=== PATIENT | female | born 1960 | race Caucasian/White ===

== ENCOUNTER 2016-10-02 19:24 | Inpatient (IN) | payer OTHER ==
[2016-10-02 20:30] LABS: Hematocrit 44 % (35-47); Hemoglobin 14.4 g/dl (12.0-16.0); Mean Corpuscular HGB Conc 33 g/dl (31-36); Mean Corpuscular Hemoglobin 30 pg (27-31); Mean Corpuscular Volume 89 fL (80-97); Mean Platelet Volume 9 um3 (7.4-10.4); Red Blood Count 4.89 10^6/ul (4.0-5.4); Red Cell Distribution Width 13 % (10.5-15)
[2016-10-02 20:48] LABS: ALT 11 U/L (7-52); AST 17 U/L (13-39); Albumin 4.9 g/dL (3.2-5.2); Alkaline Phosphatase 49 U/L (34-104); Anion Gap 9 mmol/L (2-11); BUN/Creatinine Ratio 16.5 (8-20); Blood Urea Nitrogen 14 mg/dL (6-24); CO2 Carbon Dioxide 22 mmol/L (22-32); Calcium 10.1 mg/dL (8.6-10.3); Chloride 105 mmol/L (101-111); EGFR Non-African American 69.2 (>60); Globulin 2.8 g/dL (2-4); Glucose 108 mg/dL (70-100); Potassium 3.7 mmol/L (3.5-5.0); Sodium 136 mmol/L (133-145); Total Protein 7.7 g/dL (6.4-8.9)
[2016-10-02 21:16] LABS: Acetaminophen < 15 mcg/mL; Alcohol < 10 mg/dL (<10); Lithium < 0.10 mmol/L (0.6-1.2); Salicylate < 2.50 mg/dL (<30)
[2016-10-02 21:26] LABS: TSH (Thyroid Stimulating Horm) 2.46 mcIU/mL (0.34-5.60)
[2016-10-02] MEDS ORDERED: LORazepam INJ* 2 MG/ML 1 ML VIAL IM ONE (22:44)
[2016-10-02] MEDS ORDERED: Haloperidol INJ IV/IM* 5 MG/ML AMP IM ONE (22:44)
[2016-10-02] MEDS ORDERED: diPHENhydraMINE IV* 50 MG/ML 1 ml VIAL (BENADRYL) IM ONE (22:44)
--- NOTE | 2016-10-02 22:46 | ED ---
Ann Yeh Edward, scribed for Jeet Roche MD on 10/02/16 at 2004 . Psychiatric Complaint - HPI Summary HPI Summary: 56 y/o female presents to ED c/o depression and trouble sleeping. Patient states she could not sleep last night. Patient was convinced by her family to come in to the ED. Denies change in appetite. Patient started taking [place] a couple of weeks ago. - History Of Current Complaint Chief Complaint: EDMentalHealth Time Seen by Provider: 10/02/16 19:48 Hx Obtained From: Patient, Family/Media Center Director School - Son and present. Hx Last Menstrual Period: 06/16/12 Onset/Duration: Lasting Days - Started yesterday, Still Present Timing: Constant Character: Depressed Associated Signs And Symptoms: Positive: Sleep Disturbance - Allergies/Home Medications Allergies/Adverse Reactions: Allergies Allergy/AdvReac Type Severity Reaction Status Date / Time Penicillins Allergy Unknown Unknown Verified 04/04/16 14:10 Reaction Details PMH/Surg Hx/FS Hx/Imm Hx Previously Healthy: No Neurological History: Reports: Hx Headaches - Chronic Headaches Psychiatric History: Reports: Hx Depression, Hx Suicide Attempt Denies: Hx of Violent Episodes Against Others Infectious Disease History: Denies: Traveled Outside the [place] in Last 30 Days - Family History Known Family History: Positive: Other - Alcoholism, Depression Family History: FHx of alcohol abuse disorder. FHx of anxiety disorder - Social History Occupation: Unemployed Lives: With Family Alcohol Use: Rare Hx Substance Use: No Substance Use Type: Reports: None Hx Tobacco Use: No Smoking Status (MU): Never Smoked Tobacco Review of Systems Constitutional: Negative Negative: Fever Eyes: Negative ENT: Negative Cardiovascular: Negative Respiratory: Negative Gastrointestinal: Negative Genitourinary: Negative Musculoskeletal: Negative Skin: Negative Neurological: Other - Can't sleep Positive: Depressed All Other Systems Reviewed And Are Negative: Yes Physical Exam Triage Information Reviewed: Yes Vital Signs On Initial Exam: Initial Vitals Temp Pulse Resp BP Pulse Ox 98.7 F 79 20 151/90 99 10/02/16 19:27 10/02/16 19:27 10/02/16 19:27 10/02/16 19:27 10/02/16 19:27 Vital Signs Reviewed: Yes Appearance: Positive: Well-Appearing, No Pain Distress Skin: Positive: Warm, Skin Color Reflects Adequate Perfusion, Dry Head/Face: Positive: Normal Head/Face Inspection Eyes: Positive: Normal ENT: Positive: Normal ENT inspection Neck: Positive: Supple, Nontender Respiratory/Lung Sounds: Positive: Clear to Auscultation, Breath Sounds Present Cardiovascular: Positive: RRR Abdomen Description: Positive: Nontender, Soft Bowel Sounds: Positive: Present Musculoskeletal: Positive: Normal Neurological: Positive: Normal Psychiatric: Positive: Depressed - Depressed affect Diagnostics - Vital Signs Vital Signs Temp Pulse Resp BP Pulse Ox 10/02/16 19:27 98.7 F 79 20 151/90 99 - Laboratory Lab Results: Lab Results 10/02/16 10/02/16 Range/Units 20:21 20:21 WBC 8.0 (3.5-10.8) 10^3/ul RBC 4.89 (4.0-5.4) 10^6/ul Hgb 14.4 (12.0-16.0) g/dl Hct 44 (35-47) % MCV 89 (80-97) fL MCH 30 (27-31) pg MCHC 33 (31-36) g/dl RDW 13 (10.5-15) % Plt Count 300 (150-450) 10^3/ul MPV 9 (7.4-10.4) um3 Neut % (Auto) 55.4 (38-83) % Lymph % (Auto) 36.1 (25-47) % [place] % (Auto) 6.7 (1-9) % Eos % (Auto) 0.8 (0-6) % Baso % (Auto) 1.0 (0-2) % Absolute Neuts (auto) 4.4 (1.5-7.7) 10^3/ul Absolute Lymphs (auto) 2.9 (1.0-4.8) 10^3/ul Absolute Monos (auto) 0.5 (0-0.8) 10^3/ul Absolute Eos (auto) 0.1 (0-0.6) 10^3/ul Absolute Basos (auto) 0.1 (0-0.2) 10^3/ul Absolute Nucleated RBC 0 10^3/ul Nucleated RBC % 0 Sodium 136 (133-145) mmol/L Potassium 3.7 (3.5-5.0) mmol/L Chloride 105 (101-111) mmol/L Carbon Dioxide 22 (22-32) mmol/L Anion Gap 9 (2-11) mmol/L BUN 14 (6-24) mg/dL Creatinine 0.85 (0.51-0.95) mg/dL Est GFR ( Amer) 89.0 (>60) Est GFR (Non-Af Amer) 69.2 (>60) BUN/Creatinine Ratio 16.5 (8-20) Glucose 108 H (70-100) mg/dL Calcium 10.1 (8.6-10.3) mg/dL Total Bilirubin 0.80 (0.2-1.0) mg/dL AST 17 (13-39) U/L ALT 11 (7-52) U/L Alkaline Phosphatase 49 (34-104) U/L Total Protein 7.7 (6.4-8.9) g/dL Albumin 4.9 (3.2-5.2) g/dL Globulin 2.8 (2-4) g/dL Albumin/Globulin Ratio 1.8 (1-3) TSH 2.46 (0.34-5.60) mcIU/mL Salicylates < 2.50 (<30) mg/dL Acetaminophen < 15 mcg/mL [place] < 0.10 L (0.6-1.2) mmol/L Serum Alcohol < 10 (<10) mg/dL Result Diagrams: 10/02/16 20:21 10/02/16 20:21 Lab Statement: Any lab studies that have been ordered have been reviewed, and results considered in the medical decision making process. Course/Dx - Course Course Of Treatment: Ms. Prieto was brought in by her family for deprssion. They feared for her safety. She was medically cleared and had a mental health evaluation and she is going to be admitted. - Differential Dx/Clinical Impression Provider Diagnosis: Depression Discharge - Discharge Plan Condition: Stable Disposition: ADMITTED TO [facility] Referrals: Domenic Guillen MD [Primary Care Provider] - The documentation as recorded by the Ann stein Edward accurately reflects the service I personally performed and the decisions made by , Jeet Roche MD.
[2016-10-03] MEDS ORDERED: Al Hydrox/Mg Hydrox/Simet LIQ* 30 ML UDC PO PRN (03:59)
[2016-10-03] MEDS ORDERED: Nicotine Inhaler* 10 MG AMP INH PRN (03:59)
[2016-10-03] MEDS ORDERED: Nicotine GUM* 2 MG PO PRN (03:59)
[2016-10-03] MEDS ORDERED: Acetaminophen TAB* 325 MG PO PRN (03:59)
[2016-10-03] MEDS ORDERED: Mouth Piece, Nicotine* 1 EACH CARTRIDGE INH SCH (03:59)
[2016-10-03] MEDS: Vitamin THERAPEUTIC TAB PO SCH (10:06)
[2016-10-03] MEDS: FLUoxetine CAP* 20 MG PO SCH (15:34)
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
[2016-10-03] MEDS: Lithium Carbonate ER* 450 MG TAB.ER PO SCH (20:20)
[2016-10-04 04:14] LABS: Urine Bacteria Absent (Absent); Urine Bilirubin Negative (Negative); Urine Glucose Negative (Negative); Urine Nitrite Negative (Negative)
[2016-10-04 04:30] LABS: Benzodiazepine Urine Screen None Detected (None Detect)
[2016-10-04] MEDS: Vitamin THERAPEUTIC TAB PO SCH (09:45)
[2016-10-04] MEDS: BuPROPion XL* 300 MG TAB.XL PO SCH (09:46)
[2016-10-04] MEDS: FLUoxetine CAP* 20 MG PO SCH (09:46)
--- NOTE | 2016-10-04 12:07 | PN ---
Subjective - Subjective Service Type: 59215 Hosp care 15 min low complexity Subjective: Gwen remains in bed today, isolating and not participating in milieu activities, although she has been accepting scheduled medications. I ask about her pending bankruptcy hearing tomorrow in [place] but she denies being overly stressed by this. She gives brief, uninformative answers to questions and quickly closes her eyes and goes back to resting as I end the conversation. She denies SI. Objective - Appearance Appearance: Well Developed/Nourished Dysmorphic Features: No Hygiene: Normal Grooming: Disheveled - Behavior Psychomotor Activities: Abnormal-Decreased Exhibits Abnormal Movement: No - Attitude and Relatedness Attitude and Relatedness: Withdrawn Eye Contact: Poor - Speech Quality: Unpressured Latencies: Long Quantity: Terse - Mood Patient's Decription of Mood: "Sad" - Affect Observed Affect: Constricted Affect Consistent with: Dysphoria - Thought Process Patient's Thought Process: Impoverished Thought Content: Yes Paranoid Ideation, No Passive Wish, No Suicidal Planning, No Homicidal Ideation - Sensorium Experiencing Hallucinations: No, Sensorium is Clear Type of Hallucinations: Visual: No, Auditory: No, Command: No - Level of Consciousness Level of Consciousness: Alert Orientation: Yes Intact, Yes Orientated to Time, Yes Orientated to Place, Yes Orientated to Person - Impulse Control Impulse Control: Poor - Insight and Judgement Insight and Judgement: Impaired - Group Participation Particating in Group Activities: No - Medication Management Medication Management Adherence: Yes Assessment - Assessment Merits Inpatient Hospitalization: For Immediate Safety, For Stabilization Inpatient DSM-IV Dx: MDD, recurrent, severe with psychotic features Clinical Impression: 56 y.o. , white female with a history of recurrent MDD and psychosis whose most recent psychiatric discharge was from [facility] in April of 2016, brought in by her due to approximately 5 days of worsening mood, questionable medication adherence and inability to care for herself, as evidenced by her elopement from our ED and subsequent agitation and need for stat medications. Plan - Plan Treatment Plan: Name: GWEN KIDD Birthdate: 1960 [id number] We have resumed the patient's outpatient medication regimen, including bupropion XL 300mg PO qday, fluoxetine 60mg PO qday and lithium ER 450mg PO qday. She remains depressed and withdrawn with probable paranoia. Encourage milieu activities and med adherence. Continued Medication Management: Continue Outpt Medication Medications: Current Medications Acetaminophen (Tylenol Tab*) 650 mg PO Q4H PRN PRN Reason: PAIN or TEMP > 101 F Al Hydrox/Mg Hydrox/Simethicone (Maalox Plus*) 30 ml PO Q4H PRN PRN Reason: INDIGESTION Bupropion HCl (Bupropion Xl*) 300 mg PO DAILY [facility] PRN Reason: Protocol Last Admin: 10/04/16 09:46 Dose: 300 mg Device (Nicotine Mouth Piece*) 1 each INH .[facility] Fluoxetine HCl (Prozac Cap*) 60 mg PO DAILY [facility] Last Admin: 10/04/16 09:46 Dose: 60 mg Ray Carbonate (Ray Carbonate Er Tab*) 450 mg PO BEDTIME [facility] Last Admin: 10/03/16 20:20 Dose: 450 mg Multivitamins (Theragran Tab*) 1 tab PO DAILY [facility] Last Admin: 10/04/16 09:45 Dose: Not Given Nicotine (Nicotine Inhaler*) 10 mg INH Q2H PRN PRN Reason: CRAVING Nicotine Polacrilex (Nicotine Gum*) 2 mg PO Q2H PRN PRN Reason: CRAVING - Discharge Plan Discharge Plan: Inpatient Hospitalization
[2016-10-04] MEDS: Lithium Carbonate ER* 450 MG TAB.ER PO SCH (20:24)
[2016-10-05] MEDS: FLUoxetine CAP* 20 MG PO SCH (09:34)
[2016-10-05] MEDS: BuPROPion XL* 300 MG TAB.XL PO SCH (09:34)
--- NOTE | 2016-10-05 11:19 | PN ---
Subjective - Subjective Service Type: 13523 Hosp care 15 min low complexity Subjective: The patient is found alone in her room, standing up at her window and gazing out. She briefly turns to look at this clinician as I enter but does not say anything and turns back around without acknowledging me. She is mute and will not even make eye contact. Staff reports indicate that she is compliant with medications and a little food but not with milieu programming. Objective - Appearance Appearance: Well Developed/Nourished Dysmorphic Features: No Hygiene: Normal Grooming: Well Kept - Behavior Psychomotor Activities: Abnormal-Decreased Exhibits Abnormal Movement: No - Attitude and Relatedness Attitude and Relatedness: Withdrawn Eye Contact: Poor - Speech Latencies: Long Quantity: Terse - Mood Patient's Decription of Mood: "Sad" - Affect Observed Affect: Constricted Affect Consistent with: Dysphoria - Thought Process Patient's Thought Process: Impoverished Thought Content: Yes Paranoid Ideation, No Passive Wish, No Suicidal Planning, No Homicidal Ideation - Sensorium Experiencing Hallucinations: No, Sensorium is Clear Type of Hallucinations: Visual: No, Auditory: No, Command: No - Level of Consciousness Level of Consciousness: Lethargic Orientation: Yes Intact, Yes Orientated to Time, Yes Orientated to Place, Yes Orientated to Person - Impulse Control Impulse Control: Poor - Insight and Judgement Insight and Judgement: Impaired - Group Participation Particating in Group Activities: No - Medication Management Medication Management Adherence: Yes Assessment - Assessment Merits Inpatient Hospitalization: For Immediate Safety, For Stabilization Inpatient DSM-IV Dx: MDD, recurrent, severe with psychotic features Clinical Impression: 56 y.o. , white female with a history of recurrent MDD and psychosis whose most recent psychiatric discharge was from [facility] in April of 2016, brought in by her due to approximately 5 days of worsening mood, questionable medication adherence and inability to care for herself, as evidenced by her elopement from our ED and subsequent agitation and need for stat medications. Plan - Plan Treatment Plan: Name: MASON KIDD Birthdate: 1960 [id number] We have resumed the patient's outpatient medication regimen, including bupropion XL 300mg PO qday, fluoxetine 60mg PO qday and lithium ER 450mg PO qhs. She remains depressed and withdrawn with probable paranoia. Encourage milieu activities and med adherence. Continued Medication Management: Continue Outpt Medication Medications: Current Medications Acetaminophen (Tylenol Tab*) 650 mg PO Q4H PRN PRN Reason: PAIN or TEMP > 101 F Al Hydrox/Mg Hydrox/Simethicone (Maalox Plus*) 30 ml PO Q4H PRN PRN Reason: INDIGESTION Bupropion HCl (Bupropion Xl*) 300 mg PO DAILY [facility] PRN Reason: Protocol Last Admin: 10/05/16 09:34 Dose: 300 mg Fluoxetine HCl (Prozac Cap*) 60 mg PO DAILY [facility] Last Admin: 10/05/16 09:34 Dose: 60 mg [place] Carbonate ([place] Carbonate Er Tab*) 450 mg PO BEDTIME [facility] Last Admin: 10/04/16 20:24 Dose: 450 mg - Discharge Plan Discharge Plan: Inpatient Hospitalization
[2016-10-05] MEDS: Lithium Carbonate ER* 450 MG TAB.ER PO SCH (21:33)
[2016-10-06] MEDS: FLUoxetine CAP* 20 MG PO SCH (08:41)
[2016-10-06] MEDS: BuPROPion XL* 300 MG TAB.XL PO SCH (08:41)
[2016-10-06] MEDS: Lithium Carbonate ER* 450 MG TAB.ER PO SCH (20:34)
[2016-10-07] MEDS: FLUoxetine CAP* 20 MG PO SCH (08:37)
[2016-10-07] MEDS: BuPROPion XL* 300 MG TAB.XL PO SCH (08:37)
--- NOTE | 2016-10-07 10:45 | PN ---
Subjective - Subjective Service Type: 47599 Hosp care 15 min low complexity Subjective: Gwen is escorted to the comfort room where she shows some eagerness to speak with me today. She is depressed and tearful, presenting with a mix of masochistic and passive-aggressive personality traits that she has become known for on our unit. "Why do I deserve help? Why should I feel better? 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 "Why is it so hard? Is it the lithium or am I getting older?" She also states her disagreement with her 's decision to pursue bankruptcy protection from the extensive credit card charges she racked up prior to her last admission here at [facility] in March. I ask about suicidal thoughts to which she responds "Only if I lose my family." Objective - Appearance Appearance: Well Developed/Nourished Dysmorphic Features: No Hygiene: Normal Grooming: Well Kept - Behavior Psychomotor Activities: Abnormal-Decreased Exhibits Abnormal Movement: No - Attitude and Relatedness Attitude and Relatedness: Withdrawn Eye Contact: Poor - Speech Quality: Unpressured Latencies: Long Quantity: Terse - Mood Patient's Decription of Mood: "Sad" - Affect Observed Affect: Constricted Affect Consistent with: Dysphoria - Thought Process Patient's Thought Process: Circumstantial Thought Content: No Passive Wish, No Suicidal Planning, No Homicidal Ideation, No Paranoid Ideation - Sensorium Experiencing Hallucinations: No, Sensorium is Clear Type of Hallucinations: Visual: No, Auditory: No, Command: No - Level of Consciousness Level of Consciousness: Lethargic Orientation: Yes Intact, Yes Orientated to Time, Yes Orientated to Place, Yes Orientated to Person - Impulse Control Impulse Control: Poor - Insight and Judgement Insight and Judgement: Impaired - Group Participation Particating in Group Activities: No - Medication Management Medication Management Adherence: Yes Assessment - Assessment Merits Inpatient Hospitalization: For Immediate Safety, For Stabilization Inpatient DSM-IV Dx: MDD, recurrent, severe with psychotic features Clinical Impression: 56 y.o. , white female with a history of recurrent MDD and psychosis whose most recent psychiatric discharge was from [facility] in April of 2016, brought in by her due to approximately 5 days of worsening mood, questionable medication adherence and inability to care for herself, as evidenced by her elopement from our ED and subsequent agitation and need for stat medications. Plan - Plan Treatment Plan: Name: GWEN KIDD Birthdate: 1960 [id number] We have resumed the patient's outpatient medication regimen, including bupropion XL 300mg PO qday, fluoxetine 60mg PO qday and lithium ER 450mg PO qhs. She remains depressed and withdrawn with probable paranoia. Encourage milieu activities and med adherence. Continued Medication Management: Continue Outpt Medication Medications: Current Medications Acetaminophen (Tylenol Tab*) 650 mg PO Q4H PRN PRN Reason: PAIN or TEMP > 101 F Al Hydrox/Mg Hydrox/Simethicone (Maalox Plus*) 30 ml PO Q4H PRN PRN Reason: INDIGESTION Bupropion HCl (Bupropion Xl*) 300 mg PO DAILY [facility] PRN Reason: Protocol Last Admin: 10/07/16 08:37 Dose: 300 mg Fluoxetine HCl (Prozac Cap*) 60 mg PO DAILY [facility] Last Admin: 10/07/16 08:37 Dose: 60 mg [place] Carbonate ([place] Carbonate Er Tab*) 450 mg PO BEDTIME [facility] Last Admin: 10/06/16 20:34 Dose: 450 mg - Discharge Plan Discharge Plan: Inpatient Hospitalization
[2016-10-07] MEDS: Lithium Carbonate ER* 450 MG TAB.ER PO SCH (20:17)
[2016-10-08] MEDS: BuPROPion XL* 300 MG TAB.XL PO SCH (09:15)
[2016-10-08] MEDS: FLUoxetine CAP* 20 MG PO SCH (09:15)
--- NOTE | 2016-10-08 13:52 | PN ---
Subjective - Subjective Service Type: 66659 Hosp care 15 min low complexity Subjective: Gwen is more bright and social on the unit today, participating in milieu activities and speaking spontaneously with this clinician. "I'm feeling better. Just wondering about the next steps." She inquires about her lithium level, which was subtherapeutic at 0.35 this AM. She remains ambivalent about her pursuing bankruptcy protection for their family, stating "I've always believed you should pay your debts." She denies SI or HI. Objective - Appearance Appearance: Well Developed/Nourished Dysmorphic Features: No Hygiene: Normal Grooming: Well Kept - Behavior Psychomotor Activities: Normal Exhibits Abnormal Movement: No - Attitude and Relatedness Attitude and Relatedness: Cooperative Eye Contact: Fair - Speech Quality: Unpressured Latencies: Normal Quantity: Appropriate - Mood Patient's Decription of Mood: "Sad" - Affect Observed Affect: Depressed Affect Consistent with: Dysphoria - Thought Process Patient's Thought Process: Coherent Thought Content: No Passive Wish, No Suicidal Planning, No Homicidal Ideation, No Paranoid Ideation - Sensorium Experiencing Hallucinations: No, Sensorium is Clear Type of Hallucinations: Visual: No, Auditory: No, Command: No - Impulse Control Impulse Control: Tenuous - Insight and Judgement Insight and Judgement: Fair - Group Participation Particating in Group Activities: Yes - Medication Management Medication Management Adherence: Yes Assessment - Assessment Merits Inpatient Hospitalization: For Immediate Safety, For Stabilization Inpatient DSM-IV Dx: MDD, recurrent, severe with psychotic features Clinical Impression: 56 y.o. , white female with a history of recurrent MDD and psychosis whose most recent psychiatric discharge was from [facility] in April of 2016, brought in by her due to approximately 5 days of worsening mood, questionable medication adherence and inability to care for herself, as evidenced by her elopement from our ED and subsequent agitation and need for stat medications. Plan - Plan Treatment Plan: Name: GWEN KIDD Birthdate: 1960 [id number] We have resumed the patient's outpatient medication regimen, including bupropion XL 300mg PO qday, fluoxetine 60mg PO qday and lithium ER 450mg PO qhs. She remains depressed and withdrawn with probable paranoia. Encourage milieu activities and med adherence. Continued Medication Management: Continue Outpt Medication Medications: Current Medications Acetaminophen (Tylenol Tab*) 650 mg PO Q4H PRN PRN Reason: PAIN or TEMP > 101 F Al Hydrox/Mg Hydrox/Simethicone (Maalox Plus*) 30 ml PO Q4H PRN PRN Reason: INDIGESTION Bupropion HCl (Bupropion Xl*) 300 mg PO DAILY AURELIA PRN Reason: Protocol Last Admin: 10/08/16 09:15 Dose: 300 mg Fluoxetine HCl (Prozac Cap*) 60 mg PO DAILY [facility] Last Admin: 10/08/16 09:15 Dose: 60 mg Maynard Carbonate (Maynard Carbonate Er Tab*) 450 mg PO BEDTIME [facility] Last Admin: 10/07/16 20:17 Dose: 450 mg - Discharge Plan Discharge Plan: Inpatient Hospitalization Lab Results - Lab Results Lab Results: 10/08/16 08:56 Maynard 0.35 L
[2016-10-08] MEDS: Lithium Carbonate ER* 450 MG TAB.ER PO SCH (21:02)
[2016-10-09] MEDS: FLUoxetine CAP* 20 MG PO SCH ×2 (08:54→10:56)
[2016-10-09] MEDS: BuPROPion XL* 300 MG TAB.XL PO SCH ×2 (08:56→10:51)
--- NOTE | 2016-10-09 11:08 | PN ---
Subjective - Subjective Service Type: 22016 Hosp care 15 min low complexity Subjective: The patient was depressed and anxious this morning and refused to take her AM medications. Upon exam she is strongly encouraged to comply with treatment and does then agree to take her fluoxetine and bupropion. She is compliant also with groups. She denies SI but asks masochistic questions such as "Why do I deserve to live?" Objective - Appearance Appearance: Well Developed/Nourished Dysmorphic Features: No Hygiene: Normal Grooming: Well Kept - Behavior Psychomotor Activities: Abnormal-Decreased Exhibits Abnormal Movement: No - Attitude and Relatedness Attitude and Relatedness: Withdrawn Eye Contact: Poor - Speech Quality: Unpressured Latencies: Normal Quantity: Terse - Mood Patient's Decription of Mood: "Sad" - Affect Observed Affect: Depressed Affect Consistent with: Dysphoria - Thought Process Patient's Thought Process: Coherent Thought Content: Yes Passive Wish, No Suicidal Planning, No Homicidal Ideation, No Paranoid Ideation - Sensorium Experiencing Hallucinations: No, Sensorium is Clear Type of Hallucinations: Visual: No, Auditory: No, Command: No - Level of Consciousness Level of Consciousness: Alert Orientation: Yes Intact, Yes Orientated to Time, Yes Orientated to Place, Yes Orientated to Person - Impulse Control Impulse Control: Poor - Insight and Judgement Insight and Judgement: Impaired - Group Participation Particating in Group Activities: Yes - Medication Management Medication Management Adherence: Partial Assessment - Assessment Merits Inpatient Hospitalization: For Immediate Safety, For Stabilization Inpatient DSM-IV Dx: MDD, recurrent, severe with psychotic features Clinical Impression: 56 y.o. , white female with a history of recurrent MDD and psychosis whose most recent psychiatric discharge was from [facility] in April of 2016, brought in by her due to approximately 5 days of worsening mood, questionable medication adherence and inability to care for herself, as evidenced by her elopement from our ED and subsequent agitation and need for stat medications. Plan - Plan Treatment Plan: Name: MASON KIDD Birthdate: 1960 [id number] We have resumed the patient's outpatient medication regimen, including bupropion XL 300mg PO qday, fluoxetine 60mg PO qday and lithium ER 450mg PO qhs. She remains depressed and withdrawn with probable paranoia. Encourage milieu activities and med adherence. Continued Medication Management: Continue Outpt Medication Medications: Current Medications Acetaminophen (Tylenol Tab*) 650 mg PO Q4H PRN PRN Reason: PAIN or TEMP > 101 F Al Hydrox/Mg Hydrox/Simethicone (Maalox Plus*) 30 ml PO Q4H PRN PRN Reason: INDIGESTION Bupropion HCl (Bupropion Xl*) 300 mg PO DAILY AURELIA PRN Reason: Protocol Last Admin: 10/09/16 10:51 Dose: 300 mg Fluoxetine HCl (Prozac Cap*) 60 mg PO DAILY [facility] Last Admin: 10/09/16 10:56 Dose: 60 mg [place] Carbonate ([place] Carbonate Er Tab*) 450 mg PO BEDTIME [facility] Last Admin: 10/08/16 21:02 Dose: 450 mg - Discharge Plan Discharge Plan: Inpatient Hospitalization
--- NOTE | 2016-10-09 11:44 | PN ---
MHU: Group Therapy Note - Service Type Service Type: 17412 Group Psychotherapy - Cognitive Behavioral Group Therapy ( CBT):Patient was attentive and participatory in CBT programming this morning, and remained in good behavioral control. Patient expressed positive insights regarding relevant treatment interventions and goals.
[2016-10-09] MEDS: Lithium Carbonate ER* 450 MG TAB.ER PO SCH (21:07)
[2016-10-10] MEDS: FLUoxetine CAP* 20 MG PO SCH (09:02)
[2016-10-10] MEDS: BuPROPion XL* 300 MG TAB.XL PO SCH (09:02)
--- NOTE | 2016-10-10 11:40 | PN ---
Subjective - Subjective Service Type: 76123 Hosp care 15 min low complexity Subjective: The patient appears bright and energetic on the milieu, socializing with peers, doing her laundry and going to groups. She reports having "a good day" and states that she had a nice visit with her family on the unit yesterday. She denies SI or HI and feels like she's getting prepared to go home later this week. Objective - Appearance Appearance: Well Developed/Nourished Dysmorphic Features: No Hygiene: Normal Grooming: Well Kept - Behavior Psychomotor Activities: Normal Exhibits Abnormal Movement: No - Attitude and Relatedness Attitude and Relatedness: Cooperative Eye Contact: Good - Speech Quality: Unpressured Latencies: Normal Quantity: Appropriate - Mood Patient's Decription of Mood: "Good" - Affect Observed Affect: Good Affect Consistent with: Euthymia - Thought Process Patient's Thought Process: Coherent Thought Content: No Passive Wish, No Suicidal Planning, No Homicidal Ideation, No Paranoid Ideation - Sensorium Experiencing Hallucinations: No, Sensorium is Clear Type of Hallucinations: Visual: No, Auditory: No, Command: No - Level of Consciousness Level of Consciousness: Alert Orientation: Yes Intact, Yes Orientated to Time, Yes Orientated to Place, Yes Orientated to Person - Impulse Control Impulse Control: Tenuous - Insight and Judgement Insight and Judgement: Fair - Group Participation Particating in Group Activities: Yes - Medication Management Medication Management Adherence: Yes Assessment - Assessment Merits Inpatient Hospitalization: Consolidate Improvements, Pending Safe DC Plan Inpatient DSM-IV Dx: MDD, recurrent, severe with psychotic features Clinical Impression: 56 y.o. , white female with a history of recurrent MDD and psychosis whose most recent psychiatric discharge was from [facility] in April of 2016, brought in by her due to approximately 5 days of worsening mood, questionable medication adherence and inability to care for herself, as evidenced by her elopement from our ED and subsequent agitation and need for stat medications. Plan - Plan Treatment Plan: Name: MASON KIDD Birthdate: 1960 [id number] We have resumed the patient's outpatient medication regimen, including bupropion XL 300mg PO qday, fluoxetine 60mg PO qday and lithium ER 450mg PO qhs. She remains depressed and withdrawn with probable paranoia. Encourage milieu activities and med adherence. Consider d/c to home tomorrow if she maintains recent gains. Continued Medication Management: Continue Outpt Medication Medications: Current Medications Acetaminophen (Tylenol Tab*) 650 mg PO Q4H PRN PRN Reason: PAIN or TEMP > 101 F Al Hydrox/Mg Hydrox/Simethicone (Maalox Plus*) 30 ml PO Q4H PRN PRN Reason: INDIGESTION Bupropion HCl (Bupropion Xl*) 300 mg PO DAILY [facility] PRN Reason: Protocol Last Admin: 10/10/16 09:02 Dose: 300 mg Fluoxetine HCl (Prozac Cap*) 60 mg PO DAILY [facility] Last Admin: 10/10/16 09:02 Dose: 60 mg [place] Carbonate (Hilbert Carbonate Er Tab*) 450 mg PO BEDTIME [facility] Last Admin: 10/09/16 21:07 Dose: 450 mg - Discharge Plan Discharge Plan: Outpatient Follow Up Outpatient Program: [facility]
[2016-10-10] MEDS: Lithium Carbonate ER* 450 MG TAB.ER PO SCH (20:33)
[2016-10-11 08:20] VITALS: BP 103/70
[2016-10-11] MEDS: BuPROPion XL* 300 MG TAB.XL PO SCH (09:55)
[2016-10-11] MEDS: FLUoxetine CAP* 20 MG PO SCH (09:55)
--- NOTE | 2016-10-11 11:13 | PN ---
MHU: Group Therapy Note - Service Type Service Type: [id number] Group Psychotherapy - Cognitive Behavioral Group Therapy ( CBT):Patient was attentive and participatory in CBT programming this morning, and remained in good behavioral control. Patient expressed positive insights regarding relevant treatment interventions and goals.
--- NOTE | 2016-10-11 15:22 | DS ---
DATE OF ADMISSION: 10/03/2016. DATE OF DISCHARGE: 10/11/2016. DISCHARGE DIAGNOSES: AXIS I: Major depressive disorder, recurrent, severe with psychotic features. AXIS II: Deferred. AXIS III: None. AXIS IV: Moderate, primary support and financial stressors. AXIS V: At the time of admission was 30 and at the time of discharge is 60. CONDITION AT THE TIME OF DISCHARGE: Stable. The patient is calm, cooperative. She is euthymic with a bright affect. She has been participating regularly in milieu activities, including eating meals, drinking fluids appropriately, taking medications. 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 She is getting along well with her and three children, and the family is in support of the discharge plan. The major stressor leading to this hospitalization appears to be that the patient stopped taking her medications. She has been educated about this and has resumed them, tolerating them well and is agreeable with continuing medication management in the outpatient setting. MENTAL STATUS EXAM AT THE TIME OF DISCHARGE: The patient is a middle-aged, white female who looks slightly older than her stated age. She is wearing casual clothing. She is calm, cooperative, makes good eye contact. Speech has a normal rate, tone and volume. Mood is euthymic with a full affect. Thought process linear and goal-directed. Thought content is significant for her desire to be discharged from the hospital and return home to be with her family. She denies suicidal or homicidal ideation. She denies auditory or visual hallucinations. Insight and judgment are fair given her willingness to follow- up with outpatient treatment. Cognitively, she is awake and alert with what would appear to be an average intellect. DISCHARGE INSTRUCTIONS TO THE PATIENT: A. Medications: The patient is taking [employer] Carbonate extended release 450 mg p.o. daily. She is also on Wellbutrin XL 300 mg p.o. daily and Fluoxetine 40 mg p.o. daily. B. Diet: Regular. C. Activities: As tolerated. The patient is a nonsmoker. There are no laboratory or diagnostic studies pending at the time of discharge. D. Follow-up care: The patient will follow-up within one week at the [facility] where she sees her therapist. In addition, she will follow-up with psychiatrist Dr. Matt Woods on 10/26/2016. HOSPITAL COURSE - PART A: Reason for admission: The patient is a 56-year-old, , white female with a history of depression and psychosis who arrived at our emergency department having been brought in by her due to several days of worsening depressed mood, extreme pessimism, followed by agitated and paranoid behavior in our ED leading to her involuntary admission. It should be noted that the patient denies suicidal or homicidal ideations. She is well known to this observer secondary to a lengthy hospitalization that she had here at the [facility] from 03/12/2016 until 04/13/2016 for similar symptoms. At that time, she could not be adequately treated in the acute setting and was therefore transferred to the [facility] where she remained for slightly over one month, receiving stabilization in that setting. The patient apparently received intramuscular medications in our emergency room after trying to elope. At this time, she continues to be sedated and groggy and is a limited historian for this reason. I was able to reach her , Wilson, on their home phone and much of the history of present illness is provided by him. He indicates that the patient did quite well at [facility] when she was placed on [employer] therapy. She was able to be discharged in late April from the [facility] and returned home in good condition. He indicates that her depression had been well-controlled with [employer] until approximately five days ago. At that time, he noted that she had stopped sleeping well and had actually not been sleeping at all the night prior to admission. On Saturday prior to admission, she sent her daughter a cryptic text message stating "I need help." The patient's then counted up all of her medications and he feels that she has not been taking them as directed, although the patient has been denying this. In terms of stressors, he does state that they have a court appointment on October 05, in [place] for their bankruptcy situation. It is well documented that the patient had put the family in financial distress following her taking out multiple credit cards and maximizing the balances. Further stressors are that she has aging parents who are requiring more care. 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 HOSPITAL COURSE - PART B: Psychiatric treatment rendered: The patient was admitted to the Adult Behavior Health Unit and placed on q.30 minute checks for her own safety. She was immediately compliant with medications, indicating that she did not want to [facility], although she could not exactly answer why it was that she had stopped taking her medications. She did appear to be passive aggressive at times, masochistic, often asking questions to the effect of why should anyone care about me. Her and sons visited often and they were consistently involved in the treatment planning. Her seemed to think that the financial situation, vis-a-vis their pending bankruptcy, was the main stressor involved in this decompensation. At any rate , as the medications seemed to kick in, she became more active, more present on the unit, going to groups, socializing with peers. She interacted well with her family upon visitation and it was felt by the treatment team that she warranted care in a less restrictive setting. It should be noted that she has steadfastly denied suicidal or homicidal ideations throughout this hospitalization and she feels ready and able to be discharged to community follow-up. [id number]/CPS #: [id number] LEAH
== END 2016-10-11 13:20 | disposition home or self-care (01) | DRG 885 ==
LOC: ED 19:24 → BSU 10-03 01:28
PROVIDERS: ADMIT Internal Medicine; ATTEND Psychiatry & Neurology Psychiatry
PROC: GZHZZZZ Group Psychotherapy (ICD-10-PCS; principal; 2016-10-09)
DX: F33.3 Major depressive disorder, recurrent, severe with psychotic symptoms (principal); R51 Headache; Z88.0 Allergy status to penicillin; Z88.8 Allergy status to other drugs, medicaments and biological substances; Z81.1 Family history of alcohol abuse and dependence; Z81.8 Family history of other mental and behavioral disorders; Z91.5 Personal history of self-harm; Z56.0 Unemployment, unspecified
CPT/HCPCS: 36415; 80053; 80178; 80307; 80320; 80329; 81003; 81015; 84443; 85025; 87077; 87086; A9270-GY; G0480; J1200; J1630; J2060

== ENCOUNTER 2016-11-29 12:07 | Inpatient (IN) | payer OTHER ==
[2016-11-29 13:31] LABS: Hematocrit 41 % (35-47); Hemoglobin 13.2 g/dl (12.0-16.0); Mean Corpuscular HGB Conc 32 g/dl (31-36); Mean Corpuscular Hemoglobin 30 pg (27-31); Mean Corpuscular Volume 92 fL (80-97); Mean Platelet Volume 9 um3 (7.4-10.4); Red Blood Count 4.43 10^6/ul (4.0-5.4); Red Cell Distribution Width 13 % (10.5-15); White Blood Count 4.7 10^3/ul (3.5-10.8)
[2016-11-29 13:47] LABS: ALT 9 U/L (7-52); AST 14 U/L (13-39); Albumin 4.6 g/dL (3.2-5.2); Alkaline Phosphatase 47 U/L (34-104); Anion Gap 6 mmol/L (2-11); BUN/Creatinine Ratio 13.4 (8-20); Blood Urea Nitrogen 11 mg/dL (6-24); CO2 Carbon Dioxide 27 mmol/L (22-32); Calcium 9.4 mg/dL (8.6-10.3); Chloride 105 mmol/L (101-111); EGFR African American 92.7 (>60); EGFR Non-African American 72.1 (>60); Globulin 2.6 g/dL (2-4); Glucose 93 mg/dL (70-100); Potassium 3.7 mmol/L (3.5-5.0); Sodium 138 mmol/L (133-145); Total Protein 7.2 g/dL (6.4-8.9)
[2016-11-29 14:07] LABS: Acetaminophen < 15 mcg/mL; Alcohol < 10 mg/dL (<10); Salicylate < 2.50 mg/dL (<30)
[2016-11-29 14:17] LABS: TSH (Thyroid Stimulating Horm) 1.01 mcIU/mL (0.34-5.60)
[2016-11-29 15:47] LABS: Lithium 0.32 mmol/L (0.6-1.2)
--- NOTE | 2016-11-29 15:56 | ED ---
Willy Yeh Angela, scribed for Lorne Sevilla MD on 11/29/16 at 1305 . Psychiatric Complaint - HPI Summary HPI Summary: 56 y/o female presents to the ED accompanied by her family for a mental health evaluation. Pt has been brought in to the ED by her son and c/o pt calling family members to see who was sick. Pt denies SI, HI, hallucinations, anxiety. Pt denies any alcohol or drug use today. - History Of Current Complaint Chief Complaint: EDMentalHealth Time Seen by Provider: 11/29/16 12:30 Hx Obtained From: Patient, Family/Occupational Health And Safety Adviser Hx Last Menstrual Period: 06/16/12 Onset/Duration: Still Present Timing: Constant Aggravating Factor(s): Nothing Alleviating Factor(s): Nothing Associated Signs And Symptoms: Negative: Hallucinating Has Suicidal: Denies: Thoughts Has Homicidal: Denies: Thoughts - Allergies/Home Medications Allergies/Adverse Reactions: Allergies Allergy/AdvReac Type Severity Reaction Status Date / Time Penicillins Allergy Unknown Unknown Verified 10/03/16 16:06 Reaction Details Home Medications: Home Medications FLUoxetine CAP* [PROzac CAP*] 40 mg PO DAILY 11/29/16 [History Confirmed ] [place] Carbonate ER TAB* 450 mg PO DAILY 11/29/16 [History Confirmed 11/29/16] Melatonin 5 mg PO BEDTIME 11/29/16 [History Confirmed 11/29/16] PMH/Surg Hx/FS Hx/Imm Hx Sensory History: Denies: Hx Contacts or Glasses - Unable to determine, Hx Hearing Aid - Unable to determine Opthamlomology History: Denies: Hx Contacts or Glasses - Unable to determine Neurological History: Reports: Hx Headaches - Chronic Headaches Psychiatric History: Reports: Hx Depression, Hx Inpatient Treatment, Hx Suicide Attempt Denies: Hx of Violent Episodes Against Others Infectious Disease History: No Infectious Disease History: Denies: Traveled Outside the [place] in Last 30 Days - Family History Known Family History: Positive: Other - Alcoholism, Depression Family History: FHx of alcohol abuse disorder. FHx of anxiety disorder - Social History Alcohol Use: None Hx Substance Use: No Substance Use Type: Reports: None Hx Tobacco Use: No Smoking Status (MU): Never Smoked Tobacco Review of Systems Negative: Fever Positive: Other - NEGATIVE: SI, HI, hallucinations. Negative: Anxious All Other Systems Reviewed And Are Negative: Yes Physical Exam - Summary Physical Exam Summary: General: well-appearing, no pain distress Skin: warm, color reflects adequate perfusion, dry Head: normal Eyes: EOMI, [place] ENT: normal Neck: supple, nontender Respiratory: CTA, breath sounds present Cardiovascular: RRR Abdomen: soft, nontender Bowel: present Musculoskeletal: normal, strength/ROM intact Neurological: normal, sensory/motor intact, A&O x3 Psychological: flat affect Triage Information Reviewed: Yes Vital Signs On Initial Exam: Initial Vitals Temp Pulse Resp BP Pulse Ox 98.0 F 69 15 129/74 100 11/29/16 12:17 11/29/16 12:17 11/29/16 12:17 11/29/16 12:17 11/29/16 12:17 Vital Signs Reviewed: Yes - [place] Coma Scale Coma Scale Total: 15 Diagnostics - Vital Signs Vital Signs Temp Pulse Resp BP Pulse Ox 11/29/16 12:17 98.0 F 69 15 129/74 100 - Laboratory Lab Results: Lab Results 11/29/16 11/29/16 Range/Units 13:16 13:16 WBC 4.7 (3.5-10.8) 10^3/ul RBC 4.43 (4.0-5.4) 10^6/ul Hgb 13.2 (12.0-16.0) g/dl Hct 41 (35-47) % MCV 92 (80-97) fL MCH 30 (27-31) pg MCHC 32 (31-36) g/dl RDW 13 (10.5-15) % Plt Count 273 (150-450) 10^3/ul MPV 9 (7.4-10.4) um3 Neut % (Auto) 57.4 (38-83) % Lymph % (Auto) 33.0 (25-47) % [place] % (Auto) 6.2 (1-9) % Eos % (Auto) 2.6 (0-6) % Baso % (Auto) 0.8 (0-2) % Absolute Neuts (auto) 2.7 (1.5-7.7) 10^3/ul Absolute Lymphs (auto) 1.6 (1.0-4.8) 10^3/ul Absolute Monos (auto) 0.3 (0-0.8) 10^3/ul Absolute Eos (auto) 0.1 (0-0.6) 10^3/ul Absolute Basos (auto) 0 (0-0.2) 10^3/ul Absolute Nucleated RBC 0 10^3/ul Nucleated RBC % 0.1 Sodium 138 (133-145) mmol/L Potassium 3.7 (3.5-5.0) mmol/L Chloride 105 (101-111) mmol/L Carbon Dioxide 27 (22-32) mmol/L Anion Gap 6 (2-11) mmol/L BUN 11 (6-24) mg/dL Creatinine 0.82 (0.51-0.95) mg/dL Est GFR ( Amer) 92.7 (>60) Est GFR (Non-Af Amer) 72.1 (>60) BUN/Creatinine Ratio 13.4 (8-20) Glucose 93 (70-100) mg/dL Calcium 9.4 (8.6-10.3) mg/dL Total Bilirubin 0.50 (0.2-1.0) mg/dL AST 14 (13-39) U/L ALT 9 (7-52) U/L Alkaline Phosphatase 47 (34-104) U/L Total Protein 7.2 (6.4-8.9) g/dL Albumin 4.6 (3.2-5.2) g/dL Globulin 2.6 (2-4) g/dL Albumin/Globulin Ratio 1.8 (1-3) TSH 1.01 (0.34-5.60) mcIU/mL Salicylates < 2.50 (<30) mg/dL Acetaminophen < 15 mcg/mL [place] 0.32 L (0.6-1.2) mmol/L Serum Alcohol < 10 (<10) mg/dL Result Diagrams: 11/29/16 13:16 11/29/16 13:16 Lab Statement: Any lab studies that have been ordered have been reviewed, and results considered in the medical decision making process. Course/Dx - Course Course Of Treatment: ADMIT MHU STABLE. - Differential Dx/Clinical Impression Provider Diagnosis: Mental health problem Discharge - Discharge Plan Condition: Stable [place] [place]: Domenic Guillen MD [Primary Care Provider] - The documentation as recorded by the Willy stein Angela accurately reflects the service I personally performed and the decisions made by me, Lorne Sevilla MD.
[2016-11-29] MEDS ORDERED: Acetaminophen TAB* 325 MG PO PRN (16:09)
[2016-11-29] MEDS ORDERED: Al Hydrox/Mg Hydrox/Simet LIQ* 30 ML UDC PO PRN (16:09)
[2016-11-29 16:39] LABS: Urine Bacteria Absent (Absent); Urine Bilirubin Negative (Negative); Urine Glucose Negative (Negative); Urine Nitrite Negative (Negative)
[2016-11-29 16:47] LABS: Benzodiazepine Urine Screen None Detected (None Detect)
[2016-11-29] MEDS: Lithium Carbonate ER* 450 MG TAB.ER PO SCH (22:23)
[2016-11-29] MEDS: ARIPiprazole TAB* 5 MG PO SCH (22:23)
[2016-11-30] MEDS ORDERED: BuPROPion XL* 300 MG TAB.XL PO SCH (09:00)
[2016-11-30] MEDS: BuPROPion XL* 300 MG TAB.XL PO SCH (09:26)
[2016-11-30] MEDS: FLUoxetine CAP* 20 MG PO SCH (09:26)
[2016-11-30] MEDS: Vitamin THERAPEUTIC TAB PO SCH (09:26)
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
[2016-11-30] MEDS: Lithium Carbonate ER* 450 MG TAB.ER PO SCH (20:19)
[2016-11-30] MEDS: ARIPiprazole TAB* 5 MG PO SCH (20:19)
[2016-12-01] MEDS: BuPROPion XL* 300 MG TAB.XL PO SCH (10:06)
[2016-12-01] MEDS: FLUoxetine CAP* 20 MG PO SCH (10:06)
[2016-12-01] MEDS: Vitamin THERAPEUTIC TAB PO SCH (10:06)
--- NOTE | 2016-12-01 17:10 | PN ---
Subjective - Subjective Subjective: Gwen is found in bed, she again refuses to come out of bed to talk to this designer/writer, she c/o feeling tired because of poor sleep, she endorses improving mood , she denies SI/HI or A/VH and she contracts for safety. She replies that she does not need medications, when I inquire about her reasons for refusing them. Per staff. She has been seclusive to her room. Objective - Appearance Appearance: Healthy Appearing Dysmorphic Features: No Hygiene: Normal Grooming: Disheveled - Behavior Psychomotor Activities: Abnormal-Decreased Exhibits Abnormal Movement: No - Attitude and Relatedness Attitude and Relatedness: Guarded Eye Contact: Poor - Speech Quality: Unpressured Latencies: Short Quantity: Terse - Mood Patient's Decription of Mood: better - Affect Observed Affect: Constricted Affect Consistent with: Dysphoria - Thought Process Patient's Thought Process: Coherent, Goal Directed Thought Content: No Passive Wish, No Suicidal Planning, No Homicidal Ideation, No Paranoid Ideation - Sensorium Experiencing Hallucinations: No, Sensorium is Clear - Level of Consciousness Level of Consciousness: Alert Orientation: Yes Intact - Impulse Control Impulse Control: Intact - Insight and Judgement Insight and Judgement: Impaired - Group Participation Particating in Group Activities: No - Medication Management Medication Management Adherence: No Assessment - Assessment Merits Inpatient Hospitalization: For Ongoing Evaluation, Consolidate Improvements, For Discharge Planning Inpatient DSM-IV Dx: Major depressive disorder, recurrent, severe, with psychotic features. Clinical Impression: SUMMARY: This is the sixth lifetime inpatient psychiatric admission for this 56 - year-old woman with previous diagnosis of major depressive disorder with psychotic features, outpatient care, questionable compliance with taking prescribed medications, who was referred by relatives because of gradual decompensation in the patient's functioning, erratic behavior at home and in the community. Medical history is unremarkable. There is family history of alcoholism in relatives and in a brother and her father and of depression in her mother. Patient drinks alcohol socially but this has not been proven to be a problem. Patient's known stressors are financial difficulties, recent suspension from her job because of her concerning behaviors, and lack of compliance with taking prescribed medications. She requires inpatient level of care for safety, evaluation and treatment. Not engaged in programming but endorsing reduced distress level, improving mood , absence of suicidal ideation. She continues to refuse prescribed meds. I did inform her of our intent to see court order for TOO. Plan - Plan Treatment Plan: Name: GWEN KIDD Birthdate: 1960 [id number] Continued Medication Management: Continue Outpt Medication Medications: Current Medications Acetaminophen (Tylenol Tab*) 650 mg PO Q4H PRN PRN Reason: for pain; or Temp >101 F Al Hydrox/Mg Hydrox/Simethicone (Maalox Plus*) 30 ml PO Q4H PRN PRN Reason: INDIGESTION Aripiprazole (Abilify Tab*) 5 mg PO BEDTIME [facility] Last Admin: 11/30/16 20:19 Dose: Not Given Bupropion HCl (Bupropion Xl*) 150 mg PO DAILY [facility] Last Admin: 12/01/16 10:06 Dose: Not Given Fluoxetine HCl (Prozac Cap*) 40 mg PO DAILY [facility] Last Admin: 12/01/16 10:06 Dose: Not Given Troup Carbonate (Troup Carbonate Er Tab*) 450 mg PO 2100 [facility] Last Admin: 11/30/16 20:19 Dose: Not Given Multivitamins (Theragran Tab*) 1 tab PO DAILY [facility] Last Admin: 12/01/16 10:06 Dose: Not Given - Discharge Plan Discharge Plan: Outpatient Follow Up Outpatient Program: [facility]
[2016-12-01] MEDS: ARIPiprazole TAB* 5 MG PO SCH (21:17)
[2016-12-01] MEDS: Lithium Carbonate ER* 450 MG TAB.ER PO SCH (21:17)
[2016-12-02] MEDS: Vitamin THERAPEUTIC TAB PO SCH (07:49)
[2016-12-02] MEDS: FLUoxetine CAP* 20 MG PO SCH (07:49)
[2016-12-02] MEDS: BuPROPion XL* 300 MG TAB.XL PO SCH (07:50)
[2016-12-02] MEDS: Lithium Carbonate ER* 450 MG TAB.ER PO SCH (20:39)
[2016-12-02] MEDS: ARIPiprazole TAB* 5 MG PO SCH (20:40)
[2016-12-03] MEDS: BuPROPion XL* 300 MG TAB.XL PO SCH (07:49)
[2016-12-03] MEDS: FLUoxetine CAP* 20 MG PO SCH (07:49)
[2016-12-03] MEDS: Vitamin THERAPEUTIC TAB PO SCH (07:49)
--- NOTE | 2016-12-03 15:02 | PN ---
Subjective - Subjective Service Type: 51166 Hosp care 15 min low complexity Subjective: The patient was adherent with morning meds this AM as well as evening meds last night. She is calm and cooperative and states that she'd like to smooth things out with her during his visit today, after kicking him out yesterday. She is going to groups and eating meals appropriately. Objective - Appearance Appearance: Well Developed/Nourished Dysmorphic Features: No Hygiene: Normal Grooming: Fairly Well Kept - Behavior Psychomotor Activities: Abnormal-Decreased Exhibits Abnormal Movement: No - Attitude and Relatedness Attitude and Relatedness: Withdrawn Eye Contact: Fair - Speech Quality: Unpressured Latencies: Normal Quantity: Terse - Mood Patient's Decription of Mood: "Okay" - Affect Observed Affect: Constricted Affect Consistent with: Dysphoria - Thought Process Patient's Thought Process: Coherent, Circumstantial Thought Content: No Passive Wish, No Suicidal Planning, No Homicidal Ideation, No Paranoid Ideation - Sensorium Experiencing Hallucinations: No, Sensorium is Clear Type of Hallucinations: Visual: No, Auditory: No, Command: No - Level of Consciousness Level of Consciousness: Alert Orientation: Yes Intact, Yes Orientated to Time, Yes Orientated to Place, Yes Orientated to Person - Impulse Control Impulse Control: Tenuous - Insight and Judgement Insight and Judgement: Fair - Group Participation Particating in Group Activities: Yes - Medication Management Medication Management Adherence: Partial Assessment - Assessment Merits Inpatient Hospitalization: For Immediate Safety, For Stabilization Inpatient DSM-IV Dx: Major depressive disorder, recurrent, severe, with psychotic features. Clinical Impression: 56 y.o. , white female with a history of recurrent MDD admitted for depressed mood and psychosis in the setting of poor outpatient treatment adherence. Plan - Plan Treatment Plan: Name: MASON KIDD Birthdate: 1960 [id number] The patient is taking a combination of aripiprazole, lithium carbonate, fluoxetine and bupropion XL. Encourage adherence. Continue to treat on an inpatient basis. Continued Medication Management: Continue Outpt Medication Medications: Current Medications Acetaminophen (Tylenol Tab*) 650 mg PO Q4H PRN PRN Reason: for pain; or Temp >101 F Al Hydrox/Mg Hydrox/Simethicone (Maalox Plus*) 30 ml PO Q4H PRN PRN Reason: INDIGESTION Aripiprazole (Abilify Tab*) 5 mg PO BEDTIME [facility] Last Admin: 12/02/16 20:40 Dose: 5 mg Bupropion HCl (Wellbutrin Xl *) 150 mg PO DAILY [facility] Fluoxetine HCl (Prozac Cap*) 40 mg PO DAILY [facility] Last Admin: 12/03/16 07:49 Dose: 40 mg Bobo Carbonate (Bobo Carbonate Er Tab*) 450 mg PO 2100 [facility] Last Admin: 12/02/16 20:39 Dose: 450 mg Multivitamins (Theragran Tab*) 1 tab PO DAILY [facility] Last Admin: 12/03/16 07:49 Dose: 1 tab - Discharge Plan Discharge Plan: Inpatient Hospitalization
[2016-12-03] MEDS: ARIPiprazole TAB* 5 MG PO SCH (19:49)
[2016-12-03] MEDS: Lithium Carbonate ER* 450 MG TAB.ER PO SCH (19:49)
[2016-12-04 09:07] LABS: HDL Cholesterol 41.5 mg/dL
[2016-12-04] MEDS: FLUoxetine CAP* 20 MG PO SCH ×2 (09:43→11:16)
[2016-12-04] MEDS: BuPROPion XL* 150 MG TAB.XL PO SCH ×2 (09:43→11:16)
[2016-12-04] MEDS: Vitamin THERAPEUTIC TAB PO SCH ×2 (09:43→11:16)
--- NOTE | 2016-12-04 16:47 | PN ---
Subjective - Subjective Service Type: 82199 Hosp care 15 min low complexity Subjective: The patient is found lying supine in bed, awake and staring at the ceiling. She makes minimal eye contact and answers questions slowly and uninformatively. She is compliant with medications and did go to some groups, but with minimal participation. She is vague and confused regarding the behaviors leading to rehospitalization. She denies SI or HI. Objective - Appearance Appearance: Well Developed/Nourished Dysmorphic Features: No Hygiene: Normal Grooming: Fairly Well Kept - Behavior Psychomotor Activities: Abnormal-Decreased Exhibits Abnormal Movement: No - Attitude and Relatedness Attitude and Relatedness: Withdrawn Eye Contact: Poor - Speech Quality: Unpressured Latencies: Long Quantity: Terse - Mood Patient's Decription of Mood: "Sad" - Affect Observed Affect: Constricted Affect Consistent with: Dysphoria - Thought Process Patient's Thought Process: Circumstantial Thought Content: Yes Paranoid Ideation, No Passive Wish, No Suicidal Planning, No Homicidal Ideation - Sensorium Experiencing Hallucinations: No, Sensorium is Clear Type of Hallucinations: Visual: No, Auditory: No, Command: No - Level of Consciousness Level of Consciousness: Alert Orientation: Yes Intact, Yes Orientated to Time, Yes Orientated to Place, Yes Orientated to Person - Impulse Control Impulse Control: Poor - Insight and Judgement Insight and Judgement: Impaired - Group Participation Particating in Group Activities: Yes - Medication Management Medication Management Adherence: Partial Assessment - Assessment Merits Inpatient Hospitalization: For Immediate Safety, For Stabilization Inpatient DSM-IV Dx: Major depressive disorder, recurrent, severe, with psychotic features. Clinical Impression: 56 y.o. , white female with a history of recurrent MDD admitted for depressed mood and psychosis in the setting of poor outpatient treatment adherence. Plan - Plan Treatment Plan: Name: MASON KIDD Birthdate: 1960 [id number] The patient is taking a combination of aripiprazole, lithium carbonate, fluoxetine and bupropion XL. Encourage adherence. Will increase lithium to 450mg PO BID. Continue to treat on an inpatient basis. Continued Medication Management: Continue Outpt Medication Medications: Current Medications Acetaminophen (Tylenol Tab*) 650 mg PO Q4H PRN PRN Reason: for pain; or Temp >101 F Al Hydrox/Mg Hydrox/Simethicone (Maalox Plus*) 30 ml PO Q4H PRN PRN Reason: INDIGESTION Aripiprazole (Abilify Tab*) 5 mg PO BEDTIME [facility] Last Admin: 12/03/16 19:49 Dose: 5 mg Bupropion HCl (Wellbutrin Xl *) 150 mg PO DAILY [facility] Last Admin: 12/04/16 11:16 Dose: 150 mg Fluoxetine HCl (Prozac Cap*) 40 mg PO DAILY [facility] Last Admin: 12/04/16 11:16 Dose: 40 mg Ector Carbonate (Ector Carbonate Er Tab*) 450 mg PO BID [facility] Multivitamins (Theragran Tab*) 1 tab PO DAILY [facility] Last Admin: 12/04/16 11:16 Dose: 1 tab - Discharge Plan Discharge Plan: Inpatient Hospitalization Lab Results - Lab Results Lab Results: 12/04/16 12/04/16 08:25 08:25 Hemoglobin A1c 5.1 Triglycerides 76 Cholesterol 132 LDL Cholesterol 75 HDL Cholesterol 41.5
[2016-12-04] MEDS: ARIPiprazole TAB* 5 MG PO SCH (20:33)
[2016-12-04] MEDS: Lithium Carbonate ER* 450 MG TAB.ER PO SCH (20:33)
[2016-12-05] MEDS: Lithium Carbonate ER* 450 MG TAB.ER PO SCH ×2 (09:29→21:19)
[2016-12-05] MEDS: BuPROPion XL* 150 MG TAB.XL PO SCH (09:29)
[2016-12-05] MEDS: Vitamin THERAPEUTIC TAB PO SCH (09:30)
[2016-12-05] MEDS: FLUoxetine CAP* 20 MG PO SCH (09:30)
--- NOTE | 2016-12-05 16:27 | PN ---
Subjective - Subjective Service Type: [id number] Hosp care 15 min low complexity Subjective: Patient compliant with meds and slightly more social on the unit compared to yesterday. States that she had a good visit with her family yesterday. Still aloof and guarded with this observer. Tolerating increase in lithium well. Endorsed passive SI as recently as yesterday to staff but none today so far. Objective - Appearance Appearance: Well Developed/Nourished Dysmorphic Features: No Hygiene: Normal Grooming: Well Kept - Behavior Psychomotor Activities: Abnormal-Decreased Exhibits Abnormal Movement: No - Attitude and Relatedness Attitude and Relatedness: Withdrawn Eye Contact: Fair - Speech Quality: Unpressured Latencies: Long Quantity: Terse - Mood Patient's Decription of Mood: "Sad" - Affect Observed Affect: Constricted Affect Consistent with: Dysphoria - Thought Process Patient's Thought Process: Impoverished Thought Content: Yes Paranoid Ideation, No Passive Wish, No Suicidal Planning, No Homicidal Ideation - Sensorium Experiencing Hallucinations: No, Sensorium is Clear Type of Hallucinations: Visual: No, Auditory: No, Command: No - Level of Consciousness Level of Consciousness: Alert Orientation: Yes Intact, Yes Orientated to Time, Yes Orientated to Place, Yes Orientated to Person - Impulse Control Impulse Control: Tenuous - Insight and Judgement Insight and Judgement: Fair - Group Participation Particating in Group Activities: Yes - Medication Management Medication Management Adherence: Yes Assessment - Assessment Merits Inpatient Hospitalization: For Immediate Safety, For Stabilization Inpatient DSM-IV Dx: Major depressive disorder, recurrent, severe, with psychotic features. Clinical Impression: 56 y.o. , white female with a history of recurrent MDD admitted for depressed mood and psychosis in the setting of poor outpatient treatment adherence. Plan - Plan Treatment Plan: Name: MASON KIDD Birthdate: 1960 [id number] The patient is taking a combination of aripiprazole, lithium carbonate, fluoxetine and bupropion XL. Encourage adherence. Continue to treat on an inpatient basis. Continued Medication Management: Continue Outpt Medication Medications: Current Medications Acetaminophen (Tylenol Tab*) 650 mg PO Q4H PRN PRN Reason: for pain; or Temp >101 F Al Hydrox/Mg Hydrox/Simethicone (Maalox Plus*) 30 ml PO Q4H PRN PRN Reason: INDIGESTION Aripiprazole (Abilify Tab*) 5 mg PO BEDTIME [facility] Last Admin: 12/04/16 20:33 Dose: 5 mg Bupropion HCl (Wellbutrin Xl *) 150 mg PO DAILY [facility] Last Admin: 12/05/16 09:29 Dose: 150 mg Fluoxetine HCl (Prozac Cap*) 40 mg PO DAILY [facility] Last Admin: 12/05/16 09:30 Dose: 40 mg Flippin Carbonate (Flippin Carbonate Er Tab*) 450 mg PO BID [facility] Last Admin: 12/05/16 09:29 Dose: 450 mg Multivitamins (Theragran Tab*) 1 tab PO DAILY [facility] Last Admin: 12/05/16 09:30 Dose: 1 tab - Discharge Plan Discharge Plan: Inpatient Hospitalization
[2016-12-05] MEDS: ARIPiprazole TAB* 5 MG PO SCH (21:19)
[2016-12-06] MEDS: FLUoxetine CAP* 20 MG PO SCH (07:41)
[2016-12-06] MEDS: Vitamin THERAPEUTIC TAB PO SCH (07:41)
[2016-12-06] MEDS: Lithium Carbonate ER* 450 MG TAB.ER PO SCH ×2 (07:41→20:07)
[2016-12-06] MEDS: BuPROPion XL* 150 MG TAB.XL PO SCH (07:41)
--- NOTE | 2016-12-06 12:32 | PN ---
Subjective - Subjective Service Type: 25072 Hosp care 15 min low complexity Subjective: The patient remains mopey and unenthusiastic, attending groups and taking meds but not appearing to be future-oriented. I spoke with her , Wilson Kidd , who has made similar observations about her constricted demeanor, although he notes that she is certainly improved from admission, particularly with regard to her memory functioning. The patient denies SI and has no overt complaints. Objective - Appearance Appearance: Well Developed/Nourished Dysmorphic Features: No Hygiene: Normal Grooming: Fairly Well Kept - Behavior Psychomotor Activities: Abnormal-Decreased Exhibits Abnormal Movement: No - Attitude and Relatedness Attitude and Relatedness: Withdrawn Eye Contact: Poor - Speech Quality: Unpressured Latencies: Long Quantity: Terse - Mood Patient's Decription of Mood: "Okay" - Affect Observed Affect: Constricted Affect Consistent with: Dysphoria - Thought Process Patient's Thought Process: Circumstantial Thought Content: No Passive Wish, No Suicidal Planning, No Homicidal Ideation, No Paranoid Ideation - Sensorium Experiencing Hallucinations: No, Sensorium is Clear Type of Hallucinations: Visual: No, Auditory: No, Command: No - Level of Consciousness Level of Consciousness: Alert Orientation: Yes Intact, Yes Orientated to Time, Yes Orientated to Place, Yes Orientated to Person - Impulse Control Impulse Control: Tenuous - Insight and Judgement Insight and Judgement: Fair - Group Participation Particating in Group Activities: Yes - Medication Management Medication Management Adherence: Yes Assessment - Assessment Merits Inpatient Hospitalization: For Immediate Safety, For Stabilization Inpatient DSM-IV Dx: Major depressive disorder, recurrent, severe, with psychotic features. Clinical Impression: 56 y.o. , white female with a history of recurrent MDD admitted for depressed mood and psychosis in the setting of poor outpatient treatment adherence. Plan - Plan Treatment Plan: Name: MASON KIDD Birthdate: 1960 [id number] The patient remains depressed and withdrawn, although adherent with the combination of aripiprazole, lithium carbonate, fluoxetine and bupropion XL. Will check a Li+ level in the AM. Continue to treat on an inpatient basis. Possible d/c Saturday, 12/10. Continued Medication Management: Continue Outpt Medication Medications: Current Medications Acetaminophen (Tylenol Tab*) 650 mg PO Q4H PRN PRN Reason: for pain; or Temp >101 F Al Hydrox/Mg Hydrox/Simethicone (Maalox Plus*) 30 ml PO Q4H PRN PRN Reason: INDIGESTION Aripiprazole (Abilify Tab*) 5 mg PO BEDTIME [facility] Last Admin: 12/05/16 21:19 Dose: 5 mg Bupropion HCl (Wellbutrin Xl *) 150 mg PO DAILY [facility] Last Admin: 12/06/16 07:41 Dose: 150 mg Fluoxetine HCl (Prozac Cap*) 40 mg PO DAILY [facility] Last Admin: 12/06/16 07:41 Dose: 40 mg Sycamore Carbonate (Sycamore Carbonate Er Tab*) 450 mg PO BID [facility] Last Admin: 12/06/16 07:41 Dose: 450 mg Multivitamins (Theragran Tab*) 1 tab PO DAILY [facility] Last Admin: 12/06/16 07:41 Dose: 1 tab - Discharge Plan Discharge Plan: Inpatient Hospitalization
--- NOTE | 2016-12-06 15:59 | PN ---
MHU: Group Therapy Note - Service Type Service Type: [id number] Group Psychotherapy - Group Participation Patient Participating in Group: Yes Level of Group Participation: Attentive, Participates When Prompte Relatedness to Group: Well Related
[2016-12-06] MEDS: ARIPiprazole TAB* 5 MG PO SCH (20:07)
[2016-12-07] MEDS: Vitamin THERAPEUTIC TAB PO SCH (07:56)
[2016-12-07] MEDS: BuPROPion XL* 150 MG TAB.XL PO SCH (07:56)
[2016-12-07] MEDS: Lithium Carbonate ER* 450 MG TAB.ER PO SCH ×2 (07:56→20:22)
[2016-12-07] MEDS: FLUoxetine CAP* 20 MG PO SCH (07:56)
--- NOTE | 2016-12-07 14:54 | PN ---
Subjective - Subjective Service Type: [id number] Hosp care 15 min low complexity Subjective: The patient remains withdrawn, standing behind her bed when I enter to talk and not sitting down. She denies HI or SI but does not appear back to her baseline , which is much more interactive. She is going to most groups and does socialize with select peers. She is adherent with medications. Objective - Appearance Appearance: Well Developed/Nourished Dysmorphic Features: No Hygiene: Normal Grooming: Well Kept - Behavior Psychomotor Activities: Abnormal-Decreased Exhibits Abnormal Movement: No - Attitude and Relatedness Attitude and Relatedness: Withdrawn Eye Contact: Fair - Speech Quality: Unpressured Latencies: Long Quantity: Terse - Mood Patient's Decription of Mood: "Okay" - Affect Observed Affect: Depressed Affect Consistent with: Dysphoria - Thought Process Patient's Thought Process: Coherent, Impoverished Thought Content: No Passive Wish, No Suicidal Planning, No Homicidal Ideation, No Paranoid Ideation - Sensorium Experiencing Hallucinations: No, Sensorium is Clear Type of Hallucinations: Visual: No, Auditory: No, Command: No - Level of Consciousness Level of Consciousness: Alert Orientation: Yes Intact, Yes Orientated to Time, Yes Orientated to Place, Yes Orientated to Person - Impulse Control Impulse Control: Tenuous - Insight and Judgement Insight and Judgement: Fair - Group Participation Particating in Group Activities: Yes - Medication Management Medication Management Adherence: Yes Assessment - Assessment Merits Inpatient Hospitalization: For Immediate Safety, For Stabilization Inpatient DSM-IV Dx: Major depressive disorder, recurrent, severe, with psychotic features. Clinical Impression: 56 y.o. , white female with a history of recurrent MDD admitted for depressed mood and psychosis in the setting of poor outpatient treatment adherence. Plan - Plan Treatment Plan: Name: MASON KIDD Birthdate: 1960 [id number] The patient remains depressed and withdrawn, although adherent with the combination of aripiprazole, lithium carbonate, fluoxetine and bupropion XL. [place] level this AM was therapeutic at 0.6. Continue to treat on an inpatient basis. Possible d/c Saturday, 12/10. Continued Medication Management: Continue Outpt Medication Medications: Current Medications Acetaminophen (Tylenol Tab*) 650 mg PO Q4H PRN PRN Reason: for pain; or Temp >101 F Al Hydrox/Mg Hydrox/Simethicone (Maalox Plus*) 30 ml PO Q4H PRN PRN Reason: INDIGESTION Aripiprazole (Abilify Tab*) 5 mg PO BEDTIME [facility] Last Admin: 12/06/16 20:07 Dose: 5 mg Bupropion HCl (Wellbutrin Xl *) 150 mg PO DAILY [facility] Last Admin: 12/07/16 07:56 Dose: 150 mg Fluoxetine HCl (Prozac Cap*) 40 mg PO DAILY [facility] Last Admin: 12/07/16 07:56 Dose: 40 mg [place] Carbonate ([place] Carbonate Er Tab*) 450 mg PO BID [facility] Last Admin: 12/07/16 07:56 Dose: 450 mg Multivitamins (Theragran Tab*) 1 tab PO DAILY [facility] Last Admin: 12/07/16 07:56 Dose: 1 tab - Discharge Plan Discharge Plan: Inpatient Hospitalization Lab Results - Lab Results Lab Results: 12/07/16 07:00 [place] 0.60
[2016-12-07] MEDS: ARIPiprazole TAB* 5 MG PO SCH (20:22)
[2016-12-08] MEDS: FLUoxetine CAP* 20 MG PO SCH (07:48)
[2016-12-08] MEDS: BuPROPion XL* 150 MG TAB.XL PO SCH (07:49)
[2016-12-08] MEDS: Vitamin THERAPEUTIC TAB PO SCH (07:49)
[2016-12-08] MEDS: Lithium Carbonate ER* 450 MG TAB.ER PO SCH ×2 (07:49→20:20)
[2016-12-08] MEDS: ARIPiprazole TAB* 5 MG PO SCH (20:20)
[2016-12-09] MEDS: Lithium Carbonate ER* 450 MG TAB.ER PO SCH ×2 (08:18→20:37)
[2016-12-09] MEDS: FLUoxetine CAP* 20 MG PO SCH (08:18)
[2016-12-09] MEDS: BuPROPion XL* 150 MG TAB.XL PO SCH (08:18)
[2016-12-09] MEDS: Vitamin THERAPEUTIC TAB PO SCH (08:19)
[2016-12-09] MEDS: ARIPiprazole TAB* 5 MG PO SCH (20:38)
[2016-12-10 08:08] VITALS: BP 100/69
[2016-12-10] MEDS: Lithium Carbonate ER* 450 MG TAB.ER PO SCH (08:31)
[2016-12-10] MEDS: FLUoxetine CAP* 20 MG PO SCH (08:31)
[2016-12-10] MEDS: BuPROPion XL* 150 MG TAB.XL PO SCH (08:31)
[2016-12-10] MEDS: Vitamin THERAPEUTIC TAB PO SCH (08:32)
--- NOTE | 2016-12-10 13:21 | PN ---
MHU: Group Therapy Note - Service Type Service Type: 60991 Group Psychotherapy - Cognitive Behavioral Group Therapy ( CBT):Patient was attentive and participatory in CBT programming this morning, and remained in good behavioral control. Patient expressed positive insights regarding relevant treatment interventions and goals.
--- NOTE | 2016-12-10 16:31 | DS ---
DATE OF ADMISSION: 11/29/2016. DATE OF DISCHARGE: 12/10/2016. DISCHARGE DIAGNOSES: AXIS I: Major depressive disorder, recurrent, severe, with psychotic features. AXIS II: Deferred. AXIS III: None. AXIS IV: Moderate, occupational stressors. AXIS V: At the time of admission was 30 and at the time of discharge is 60. CONDITION AT THE TIME OF DISCHARGE: Improved. The patient is calm and cooperative. She is reality-f ocused. She is looking forward to return home to be with her and her two sons. She is arturo ating her medication well and she is at a therapeutic dose of Conetoe Carbonate. She is agreeable w ith following up at [facility] and her family is arriving to pick her up t his afternoon. They are in agreement with the discharge plan. MENTAL STATUS EXAMINATION: The patient is a clean, well-groomed, middle-aged female of somewhat jem l stature. She is calm, cooperative and makes fairly good eye contact, although her speech is quiet and slow without much spontaneity. Mood is euthymic with a somewhat constricted affect. Thought p rocess is linear and goal- directed. Thought content is significant for her desire to leave the [facility]. She denies homicidal or suicidal ideations. She denies auditory or visual hallucinations. T here is no evidence of her responding to internal stimuli. Insight and judgment appears to be fair g iven her willingness to follow-up with outpatient treatment. Cognitively, she is awake and alert wi th what would appear to be an average intellect. DISCHARGE INSTRUCTIONS TO THE PATIENT: A. Medications: She takes Aripiprazole 5 mg p.o. nightly, Conetoe Carbonate extended release 450 m g p.o. b.i.d., she takes Prozac 40 mg p.o. daily, and Wellbutrin XL 300 mg p.o. daily. B. Diet: Regular. C. Activities: As tolerated. The patient is a nonsmoker. There are no laboratory or diagnostic s tudies pending at the time of discharge. D. Follow-up care: The patient will follow-up with her outpatient psychiatrist, Dr. Eugenio Woosd , at the [facility] within one week of discharge. HOSPITAL COURSE - PART A: Reason for admission: The patient is a 56-year-old, , domiciled, a nd previously employed, female who is well-known to us from multiple prior admissions, mos t recently in September of this year, who was sent via sent from the [facility] where her son and had taken her due to concerning behavior that she has been demonstrating at home. The patient sees the psychiatrist Dr. Eugenio Woods and when her son and accompan ied her there, they described that she has been calling various people, including distance family me mbers apologizing for what she has done in the past and making statements that she does not have muc h time left. The family described that the patient had given away a log of her belongings as well a s household items to the [employer] [place], the [employer] and to other people in need. The Saturday prior to admission, she had accompanied her granddaughter to a swimming lesson and thought that all the children in the last were going to be drowning which caused other parents to get very upset. 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 The family describes her as being fixated on e ating healthy and she would not eat sugar, salt, or chemicals. She has been spending long periods o f time in the grocery store reading ingredients and throwing food away at home. The son reported th at the patient had asked him multiple times if he was watkins, which he is not. This caused the patient to begin laughing in an inappropriate and bizarre manner. They also noted that as she drove her car on public roads, she would only drive 10 miles per hour. During the mental health evaluation in e emergency room, the patient laughed inappropriately, described her mood as "I'm laughing inside, I 'm trying to communicate and talk, but it doesn't seem to be happening." She was somewhat labile in her mood, going from laughing to crying and endorsing feelings of sadness and guilty. She made a st atement to the effect that she has been taking things from other people her whole, lying and not tel ling the truth. She was bizarre enough that it was felt that she could not maintain her own safety a nd for this reason she was admitted on an involuntary 9.39 status. HOSPITAL COURSE - PART B: Psychiatric treatment rendered: The patient was admitted to the [facility] where she was placed on q.30 minute checks for her own safety. We immediately r esumed her outpatient medications, including Wellbutrin XL 300 mg daily, Fluoxetine 40 mg daily, Lit hium extended release 450 mg daily. We did add Aripiprazole 5 mg p.o. daily. Later, her therapeuti c Conetoe level was discovered to be subtherapeutic at 0.3 and this medication was then increased to 450 mg twice daily. A follow-up Conetoe level was therapeutic at 0.6. As the medications kicked i n, she became more social, more outgoing, less depressed, and more communicative. Her family made s everal visits and we relied upon them to determine what her baseline was. As she became more intera ctive, her bizarre ideations and behaviors resolved. At no point does she endorse homicidality, alt jose manuel there were times early in the hospital course that she did make vague suicidal statements. At any rate, these are completely resolved at the time of discharge. At this time, we feel that she i s stable enough to receive treatment in a less restrictive setting and this is what both she and her family are requesting. They are arriving this afternoon to pick her up and take her home, with fol low-up being at [facility]. [id number]/[facility] #: [id number]
== END 2016-12-10 15:26 | disposition home or self-care (01) | DRG 885 ==
LOC: ED 12:07 → BSU 16:09
PROVIDERS: ADMIT Psychiatry & Neurology Psychiatry; ATTEND Psychiatry & Neurology Psychiatry
DX: F33.3 Major depressive disorder, recurrent, severe with psychotic symptoms (principal); Z88.0 Allergy status to penicillin; Z91.011 Allergy to milk products; Z88.8 Allergy status to other drugs, medicaments and biological substances; Z91.018 Allergy to other foods; Z81.1 Family history of alcohol abuse and dependence; Z81.8 Family history of other mental and behavioral disorders; Z79.899 Other long term (current) drug therapy
CPT/HCPCS: 36415; 80053; 80061; 80178; 80307; 80320; 80329; 81003; 81015; 83036; 84443; 85025; 87077; 87086; 90853; 99222; 99231; A9270-GY; G0480

== ENCOUNTER 2017-01-22 15:34 | Inpatient (IN) | payer OTHER ==
[2017-01-22 17:56] LABS: Hematocrit 40 % (35-47); Hemoglobin 13.4 g/dl (12.0-16.0); Mean Corpuscular HGB Conc 34 g/dl (31-36); Mean Corpuscular Hemoglobin 30 pg (27-31); Mean Corpuscular Volume 90 fL (80-97); Mean Platelet Volume 8 um3 (7.4-10.4); Red Blood Count 4.41 10^6/ul (4.0-5.4); Red Cell Distribution Width 13 % (10.5-15)
[2017-01-22 18:11] LABS: ALT 12 U/L (7-52); AST 14 U/L (13-39); Albumin 4.6 g/dL (3.2-5.2); Alkaline Phosphatase 55 U/L (34-104); Anion Gap 6 mmol/L (2-11); BUN/Creatinine Ratio 15.8 (8-20); Blood Urea Nitrogen 12 mg/dL (6-24); CO2 Carbon Dioxide 26 mmol/L (22-32); Calcium 9.7 mg/dL (8.6-10.3); Chloride 105 mmol/L (101-111); EGFR African American 101.2 (>60); EGFR Non-African American 78.7 (>60); Glucose 116 mg/dL (70-100); Sodium 137 mmol/L (133-145); Total Protein 7.6 g/dL (6.4-8.9)
[2017-01-22 18:29] LABS: Acetaminophen < 15 mcg/mL; Alcohol < 10 mg/dL (<10); Lithium 0.52 mmol/L (0.6-1.2); Salicylate < 2.50 mg/dL (<30)
--- NOTE | 2017-01-22 18:37 | ED ---
Willy Yeh Angela, scribed for Blake Grigsby MD on 01/22/17 at 1742 . Psychiatric Complaint - HPI Summary HPI Summary: This pt is a 56 y/o female accompanied by her LIZBETH from [facility]/o tearful and upset for the past 2 hours. Per , pt tells him she feels guilty. notes the pt has been different since Saturday, 4 days ago. Per , pt has had trouble sleeping for the past couple of days. Pt is currently changing medications, was on Abilify but then started developing tremors again so she was taken off. Pt denies SI, HI, auditory hallucinations. PMHx: schizophrenia, depression. Pt denies tobacco, drug or alcohol use. - History Of Current Complaint Chief Complaint: EDMentalHealth Time Seen by Provider: 01/22/17 17:24 Hx Obtained From: Patient, Family/Social Research Assistant - Hx Last Menstrual Period: 06/16/12 Onset/Duration: Lasting Days Timing: Days Associated Signs And Symptoms: Positive: Sleep Disturbance - per . Negative: Hallucinating Has Suicidal: Denies: Thoughts, With A Plan Has Homicidal: Denies: Thoughts, With A Plan - Allergies/Home Medications Allergies/Adverse Reactions: Allergies Allergy/AdvReac Type Severity Reaction Status Date / Time Penicillins Allergy Unknown Unknown Verified 01/22/17 16:43 Reaction Details Ziprasidone [From Geodon] Allergy Shakes Verified 01/22/17 16:43 PMH/Surg Hx/FS Hx/Imm Hx Sensory History: Denies: Hx Contacts or Glasses, Hx Hearing Aid Opthamlomology History: Denies: Hx Contacts or Glasses Neurological History: Reports: Hx Headaches - Chronic Headaches Psychiatric History: Reports: Hx Depression, Hx Inpatient Treatment, Hx Community Mental Health Tx, Hx Suicide Attempt Denies: Hx of Violent Episodes Against Others Infectious Disease History: No Infectious Disease History: Denies: Traveled Outside the [place] in Last 30 Days - Family History Known Family History: Positive: Other - Alcoholism, Depression Family History: FHx of alcohol abuse disorder. FHx of anxiety disorder - Social History Alcohol Use: None Hx Substance Use: No Substance Use Type: Reports: None Hx Tobacco Use: No Smoking Status (MU): Never Smoked Tobacco Amount Used/How Often: Pt has not used any tobacco products in the last 30 days , smokable or non Review of Systems Negative: Fever, Chills Eyes: Negative ENT: Negative Cardiovascular: Negative Respiratory: Negative Positive: Depressed. Negative: Other - SI, HI, auditory hallucinations. All Other Systems Reviewed And Are Negative: Yes Physical Exam Triage Information Reviewed: Yes Vital Signs On Initial Exam: Initial Vitals Temp Pulse Resp BP Pulse Ox 99.3 F 87 18 143/83 97 01/22/17 16:15 01/22/17 16:15 01/22/17 16:15 01/22/17 16:15 01/22/17 16:15 Vital Signs Reviewed: Yes Appearance: Positive: Ill-Appearing - paranoid, tearful and scared. Skin: Positive: Warm, Skin Color Reflects Adequate Perfusion Head/Face: Positive: Normal Head/Face Inspection Eyes: Positive: EOMI ENT: Positive: Normal ENT inspection Neck: Positive: Supple, Nontender. Negative: Nuchal Rigidity Respiratory/Lung Sounds: Positive: Clear to Auscultation, Breath Sounds Present Cardiovascular: Positive: RRR. Negative: Murmur Abdomen Description: Positive: Nontender Musculoskeletal: Positive: Strength/ROM Intact Neurological: Positive: Sensory/Motor Intact, Alert, Oriented to Person Place, Time, CN Intact II-III Psychiatric: Positive: Depressed - tearful, sad, scared and paranoid - Home Coma Scale Best Eye Response: 4 - Spontaneous Best Motor Response: 6 - Obeys Commands Best Verbal Response: 5 - Oriented Diagnostics - Vital Signs Vital Signs Temp Pulse Resp BP Pulse Ox 01/22/17 16:15 99.3 F 87 18 143/83 97 - Laboratory Lab Results: Lab Results 01/22/17 01/22/17 Range/Units 17:40 17:40 WBC 7.0 (3.5-10.8) 10^3/ul RBC 4.41 (4.0-5.4) 10^6/ul Hgb 13.4 (12.0-16.0) g/dl Hct 40 (35-47) % MCV 90 (80-97) fL MCH 30 (27-31) pg MCHC 34 (31-36) g/dl RDW 13 (10.5-15) % Plt Count 316 (150-450) 10^3/ul MPV 8 (7.4-10.4) um3 Neut % (Auto) 71.8 (38-83) % Lymph % (Auto) 20.6 L (25-47) % [place] % (Auto) 5.7 (1-9) % Eos % (Auto) 1.1 (0-6) % Baso % (Auto) 0.8 (0-2) % Absolute Neuts (auto) 5.0 (1.5-7.7) 10^3/ul Absolute Lymphs (auto) 1.4 (1.0-4.8) 10^3/ul Absolute Monos (auto) 0.4 (0-0.8) 10^3/ul Absolute Eos (auto) 0.1 (0-0.6) 10^3/ul Absolute Basos (auto) 0.1 (0-0.2) 10^3/ul Absolute Nucleated RBC 0.01 10^3/ul Nucleated RBC % 0.1 Sodium 137 (133-145) mmol/L Potassium 4.0 (3.5-5.0) mmol/L Chloride 105 (101-111) mmol/L Carbon Dioxide 26 (22-32) mmol/L Anion Gap 6 (2-11) mmol/L BUN 12 (6-24) mg/dL Creatinine 0.76 (0.51-0.95) mg/dL Est GFR ( Amer) 101.2 (>60) Est GFR (Non-Af Amer) 78.7 (>60) BUN/Creatinine Ratio 15.8 (8-20) Glucose 116 H (70-100) mg/dL Calcium 9.7 (8.6-10.3) mg/dL Total Bilirubin 0.50 (0.2-1.0) mg/dL AST 14 (13-39) U/L ALT 12 (7-52) U/L Alkaline Phosphatase 55 (34-104) U/L Total Protein 7.6 (6.4-8.9) g/dL Albumin 4.6 (3.2-5.2) g/dL Globulin 3.0 (2-4) g/dL Albumin/Globulin Ratio 1.5 (1-3) TSH Pending Beta HCG, Quant 1.39 mIU/mL Salicylates < 2.50 (<30) mg/dL Acetaminophen < 15 mcg/mL [place] 0.52 L (0.6-1.2) mmol/L Serum Alcohol < 10 (<10) mg/dL Result Diagrams: 01/22/17 17:40 01/22/17 17:40 Lab Statement: Any lab studies that have been ordered have been reviewed, and results considered in the medical decision making process. Course/Dx - Course Course Of Treatment: 56 yr old with depressed, tearful mood, and acting paranoid and scared. Awaits psych eval. - Differential Dx/Clinical Impression Provider Diagnosis: Depression, Hypertension Discharge - Discharge Plan Condition: Good Disposition: OTHER Discharge Disposition Comment: sign out Dr Castillo 190 with psych eval and dispo pending. The documentation as recorded by the Willy stein Angela accurately reflects the service I personally performed and the decisions made by me, Blake Grigsby MD.
[2017-01-22 18:39] LABS: Urine Bilirubin Negative (Negative); Urine Glucose Negative (Negative); Urine Nitrite Negative (Negative)
[2017-01-22 18:45] LABS: TSH (Thyroid Stimulating Horm) 2.81 mcIU/mL (0.34-5.60)
[2017-01-22 18:53] LABS: Benzodiazepine Urine Screen None Detected (None Detect)
--- NOTE | 2017-01-23 01:13 | ED ---
Chantelle Yeh Alfonso, scribed for Kalie Hirsch MD on 01/23/17 at 0111 . Progress - Progress Note Progress Note: This patient was signed out to me by Dr. Pugh at 2300 pending mental health evaluation. After MHE the patient's condition is deemed stable by Dr. Leon ( psychologist) and will be admitted involuntarily with Dx of unspecified psychosis. paperwork signed - Consult/PCP Time Called: 22:05 Course/Dx - Diagnoses Provider Diagnoses: Unspecified psychosis The documentation as recorded by the Chantelle stein Alfonso accurately reflects the service I personally performed and the decisions made by me, Kalie Hirsch MD.
[2017-01-23] MEDS ORDERED: Al Hydrox/Mg Hydrox/Simet LIQ* 30 ML UDC PO PRN (03:55)
[2017-01-23] MEDS ORDERED: Acetaminophen TAB* 325 MG PO PRN (03:55)
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
[2017-01-23] MEDS: Vitamin THERAPEUTIC TAB PO SCH (14:20)
[2017-01-23] MEDS: Lithium Carbonate ER* 450 MG TAB.ER PO SCH ×3 (14:20→21:49)
[2017-01-23] MEDS: BuPROPion XL* 300 MG TAB.XL PO SCH (14:20)
[2017-01-23] MEDS: FLUoxetine CAP* 20 MG PO SCH (14:20)
[2017-01-23] MEDS: ARIPiprazole TAB* 5 MG PO SCH ×2 (21:02→21:44)
[2017-01-24 07:39] LABS: HDL Cholesterol 67.8 mg/dL
[2017-01-24] MEDS: Vitamin THERAPEUTIC TAB PO SCH (10:59)
[2017-01-24] MEDS: FLUoxetine CAP* 20 MG PO SCH (10:59)
[2017-01-24] MEDS: BuPROPion XL* 300 MG TAB.XL PO SCH (10:59)
[2017-01-24] MEDS: Lithium Carbonate ER* 450 MG TAB.ER PO SCH ×2 (10:59→21:17)
--- NOTE | 2017-01-24 13:29 | PN ---
Subjective - Subjective Service Type: 67166 Hosp care 15 min low complexity Subjective: The patient remains psychotic and tearful. "I know the truth. My doesn 't want to be with me and neither do my kids." She has been non-adherent with medications and will not take them, even with direct encouragement from me. I understand from a voicemail from Dr. Woods that she had significant EPS from aripiprazole and this is why is was discontinued for lurasidone. Dr. Woods opined that she had done best for several years on olanzapine, although she didn 't like it because of associations with weight gain. I also spoke with her Wilson, who denied that anyone in his family had heard her say anything of a suicidal nature. The patient refuses to engage with treatment-oriented discussions, insisting on making cryptic, uninformative comments such as "It's all a lie." She denies SI or HI. Objective - Appearance Appearance: Well Developed/Nourished Dysmorphic Features: No Hygiene: Normal Grooming: Fairly Well Kept - Behavior Psychomotor Activities: Normal Exhibits Abnormal Movement: No - Attitude and Relatedness Attitude and Relatedness: Psychotically Related Eye Contact: Fair - Speech Quality: Unpressured Latencies: Long Quantity: Terse - Mood Patient's Decription of Mood: "Sad" - Affect Observed Affect: Tearful Affect Consistent with: Dysphoria - Thought Process Patient's Thought Process: Impoverished Thought Content: Yes Paranoid Ideation, No Passive Wish, No Suicidal Planning, No Homicidal Ideation - Sensorium Experiencing Hallucinations: No, Sensorium is Clear Type of Hallucinations: Visual: No, Auditory: No, Command: No - Level of Consciousness Level of Consciousness: Alert Orientation: Yes Intact, Yes Orientated to Time, Yes Orientated to Place, Yes Orientated to Person - Impulse Control Impulse Control: Poor - Insight and Judgement Insight and Judgement: Impaired - Group Participation Particating in Group Activities: No - Medication Management Medication Management Adherence: No Assessment - Assessment Merits Inpatient Hospitalization: For Immediate Safety, For Stabilization Inpatient DSM-IV Dx: MDD, recurrent, severe with psychotic features Clinical Impression: 56 y.o. , white female with a history of multiple recent psychiatric hospitalizations related to recurrent major depressive disorder in the setting of questionable adherence with outpatient psychiatric medications; who is brought in on 9.45 legal status, as signed by the [facility], secondary to psychotic decompensation and inability to care for herself in the community. Plan - Plan Treatment Plan: Name: MASON KIDD Birthdate: 1960 [id number] We will resume treatment with fluoxetine 40mg PO qday, bupropion XL 300mg PO qday, and lithium ER 450mg PO BID. We will discontinue aripiprazole and place her back on olanzapine 5mg PO qhs, in accordance with Dr. Woods's recommendations. Continue to treat on an inpatient basis. Continued Medication Management: Different Medication Medications: Current Medications Acetaminophen (Tylenol Tab*) 650 mg PO Q4H PRN PRN Reason: PAIN or TEMP > 101 F Al Hydrox/Mg Hydrox/Simethicone (Maalox Plus*) 30 ml PO Q4H PRN PRN Reason: INDIGESTION Bupropion HCl (Bupropion Xl*) 300 mg PO DAILY [facility] Last Admin: 01/24/17 10:59 Dose: Not Given Fluoxetine HCl (Prozac Cap*) 40 mg PO DAILY [facility] Last Admin: 01/24/17 10:59 Dose: Not Given [place] Carbonate ([place] Carbonate Er Tab*) 450 mg PO BID [facility] Last Admin: 01/24/17 10:59 Dose: Not Given Multivitamins (Theragran Tab*) 1 tab PO DAILY [facility] Last Admin: 01/24/17 10:59 Dose: Not Given - Discharge Plan Discharge Plan: Inpatient Hospitalization Lab Results - Lab Results Lab Results: 01/24/17 01/24/17 07:05 07:05 Hemoglobin A1c 5.3 Triglycerides 55 Cholesterol 186 LDL Cholesterol 107 HDL Cholesterol 67.8
[2017-01-24] MEDS: OLANzapine TAB* 5 MG PO SCH (21:17)
[2017-01-25] MEDS: Lithium Carbonate ER* 450 MG TAB.ER PO SCH ×2 (09:29→20:57)
[2017-01-25] MEDS: BuPROPion XL* 300 MG TAB.XL PO SCH (09:29)
[2017-01-25] MEDS: FLUoxetine CAP* 20 MG PO SCH (09:29)
[2017-01-25] MEDS: Vitamin THERAPEUTIC TAB PO SCH (09:29)
--- NOTE | 2017-01-25 13:41 | PN ---
Subjective - Subjective Service Type: 98594 Hosp care 15 min low complexity Subjective: Patient continues to decline medication therapy and is once again found in her room, crying on top of her bed. When asked about her lack of adherence, she replies "I'd rather go it alone. This is what I have to do." She continues to delusionally insist that she has done horrible things to others in life and deserves to be punished. She denies SI or HI. She thinks her is planning on leaving her but this is not corroborated by other sources. Objective - Appearance Appearance: Well Developed/Nourished Dysmorphic Features: No Hygiene: Normal Grooming: Fairly Well Kept - Behavior Psychomotor Activities: Abnormal-Decreased Exhibits Abnormal Movement: No - Attitude and Relatedness Attitude and Relatedness: Psychotically Related Eye Contact: Poor - Speech Quality: Unpressured Latencies: Long Quantity: Terse - Mood Patient's Decription of Mood: "Terrible" - Affect Observed Affect: Tearful Affect Consistent with: Dysphoria - Thought Process Patient's Thought Process: Circumstantial Thought Content: Yes Paranoid Ideation, No Passive Wish, No Suicidal Planning, No Homicidal Ideation - Sensorium Experiencing Hallucinations: No, Sensorium is Clear Type of Hallucinations: Visual: No, Auditory: No, Command: No - Level of Consciousness Level of Consciousness: Lethargic Orientation: Yes Intact, Yes Orientated to Time, Yes Orientated to Place, Yes Orientated to Person - Impulse Control Impulse Control: Poor - Insight and Judgement Insight and Judgement: Impaired - Group Participation Particating in Group Activities: No - Medication Management Medication Management Adherence: No Assessment - Assessment Merits Inpatient Hospitalization: For Immediate Safety, For Stabilization Inpatient DSM-IV Dx: MDD, recurrent, severe with psychotic features Clinical Impression: 56 y.o. , white female with a history of multiple recent psychiatric hospitalizations related to recurrent major depressive disorder in the setting of questionable adherence with outpatient psychiatric medications; who is brought in on 9.45 legal status, as signed by the [facility], secondary to psychotic decompensation and inability to care for herself in the community. Plan - Plan Treatment Plan: Name: MASON KIDD Birthdate: 1960 [id number] The patient is refusing treatment with fluoxetine 40mg PO qday, bupropion XL 300mg PO qday, lithium ER 450mg PO BID and olanzapine 5mg PO qhs. We will consider T.O.O. proceedings if she continues to show no improvement. Continued Medication Management: Continue Outpt Medication Medications: Current Medications Acetaminophen (Tylenol Tab*) 650 mg PO Q4H PRN PRN Reason: PAIN or TEMP > 101 F Last Admin: 01/24/17 21:14 Dose: 650 mg Al Hydrox/Mg Hydrox/Simethicone (Maalox Plus*) 30 ml PO Q4H PRN PRN Reason: INDIGESTION Bupropion HCl (Bupropion Xl*) 300 mg PO DAILY [facility] Last Admin: 01/25/17 09:29 Dose: Not Given Fluoxetine HCl (Prozac Cap*) 40 mg PO DAILY [facility] Last Admin: 01/25/17 09:29 Dose: Not Given [place] Carbonate ([place] Carbonate Er Tab*) 450 mg PO BID [facility] Last Admin: 01/25/17 09:29 Dose: Not Given Multivitamins (Theragran Tab*) 1 tab PO DAILY [facility] Last Admin: 01/25/17 09:29 Dose: Not Given Olanzapine (Zyprexa Tab*) 5 mg PO BEDTIME [facility] Last Admin: 01/24/17 21:17 Dose: Not Given - Discharge Plan Discharge Plan: Inpatient Hospitalization Lab Results - Lab Results Lab Results: 01/24/17 01/24/17 07:05 07:05 Hemoglobin A1c 5.3 Triglycerides 55 Cholesterol 186 LDL Cholesterol 107 HDL Cholesterol 67.8
--- NOTE | 2017-01-25 14:36 | PN ---
[facility]: Group Therapy Note - Service Type Service Type: [id number] Group Psychotherapy - Cognitive Behavioral Group Therapy ( CBT):Patient attended CBT programming this morning and presented with flat affect that did not vary with discussion. Although responsive to direct prompts to respond to questions, patient did not engage in spontaneous conversation.
[2017-01-25] MEDS: OLANzapine TAB* 5 MG PO SCH (20:57)
[2017-01-26] MEDS: FLUoxetine CAP* 20 MG PO SCH (09:18)
[2017-01-26] MEDS: BuPROPion XL* 300 MG TAB.XL PO SCH (09:18)
[2017-01-26] MEDS: Lithium Carbonate ER* 450 MG TAB.ER PO SCH ×2 (09:18→22:22)
[2017-01-26] MEDS: Vitamin THERAPEUTIC TAB PO SCH (09:18)
[2017-01-26] MEDS: OLANzapine TAB* 5 MG PO SCH (22:22)
[2017-01-27] MEDS: BuPROPion XL* 300 MG TAB.XL PO SCH (09:51)
[2017-01-27] MEDS: Lithium Carbonate ER* 450 MG TAB.ER PO SCH ×2 (09:51→20:18)
[2017-01-27] MEDS: Vitamin THERAPEUTIC TAB PO SCH (09:51)
[2017-01-27] MEDS: FLUoxetine CAP* 20 MG PO SCH (09:51)
--- NOTE | 2017-01-27 15:48 | PN ---
<NeelRosa Elena onofre - Last Filed: 01/27/17 16:17> Subjective - Subjective Service Type: 52191 Hosp care 15 min low complexity Subjective: Mason is found lying in bed with her back turned away from door reading a book "about the bible". She is dsyphoric with flat affect, speech is slow, answers questions with appropriate short answers; continues to refuse medications throught the weekend. Denies suicidal ideation or thoughts of self harm. Reports her mood is "ok". Eye contact is fair, difficult to engage in interview though she thanked me twice as I was leaving the room. Parents visited earlier, she is waiting for her visit, "I want to go home". Objective - Appearance Appearance: Healthy Appearing Dysmorphic Features: No Hygiene: Normal Grooming: Fairly Well Kept - Behavior Psychomotor Activities: Abnormal-Decreased Exhibits Abnormal Movement: No - Attitude and Relatedness Attitude and Relatedness: Minimally Cooperative - and withdrawn Eye Contact: Fair - Speech Quality: Unpressured Latencies: Long Quantity: Terse - Mood Patient's Decription of Mood: "Okay" - affect is not congruent with this - Affect Observed Affect: Depressed Affect Consistent with: Dysphoria - Thought Process Patient's Thought Process: Coherent Thought Content: No Passive Wish - actively denies, No Suicidal Planning, No Homicidal Ideation - Sensorium Experiencing Hallucinations: No, Sensorium is Clear Type of Hallucinations: Visual: No, Auditory: No, Command: No - Level of Consciousness Level of Consciousness: Alert Orientation: Yes Intact, Yes Orientated to Time, Yes Orientated to Place, Yes Orientated to Person - able to recall my name and that of my supervising psychiatrist after 10 minutes. - Impulse Control Impulse Control: Intact - Insight and Judgement Insight and Judgement: Poor - Group Participation Particating in Group Activities: No - Medication Management Medication Management Adherence: No - continues to refuse medications Assessment - Assessment Merits Inpatient Hospitalization: For Stabilization, For Ongoing Evaluation Inpatient DSM-IV Dx: MDD, recurrent, severe with psychotic features Clinical Impression: This is the 7th psychiatric inpatient admission for this 56 yr. old female; most recent stays were in September and October of this year. Admitted on 01/23,from ED having been brought in on a 9.45, at the recommendation of her outpatient psychiatrist , [facility]. She was decompensating in the community with disorganized thought process and paranoid ideas; it is questionable that she had been adherent to outpatient medications: fluoxetine, buproprion, aripiprazole and lithium. Since admission she has been refusing medications which include olanzapine, fluoxetine, buproprion and lithium. She requires continued hospitalization for further evaluation. She remains dyphoric with flat affect, denies suicidal or homicidal ideation. Interactions with others is minimal. Plan - Plan Treatment Plan: Name: MASON KIDD Birthdate: 1960 [id number] Medications: Current Medications Acetaminophen (Tylenol Tab*) 650 mg PO Q4H PRN PRN Reason: PAIN or TEMP > 101 F Last Admin: 01/24/17 21:14 Dose: 650 mg Al Hydrox/Mg Hydrox/Simethicone (Maalox Plus*) 30 ml PO Q4H PRN PRN Reason: INDIGESTION Bupropion HCl (Bupropion Xl*) 300 mg PO DAILY [facility] Last Admin: 01/27/17 09:51 Dose: Not Given Fluoxetine HCl (Prozac Cap*) 40 mg PO DAILY [facility] Last Admin: 01/27/17 09:51 Dose: Not Given [place] Carbonate ([place] Carbonate Er Tab*) 450 mg PO BID [facility] Last Admin: 01/27/17 09:51 Dose: Not Given Multivitamins (Theragran Tab*) 1 tab PO DAILY [facility] Last Admin: 01/27/17 09:51 Dose: 1 tab Olanzapine (Zyprexa Tab*) 5 mg PO BEDTIME [facility] Last Admin: 01/26/17 22:22 Dose: Not Given <Amrit Banegas - Last Filed: 01/27/17 18:21> Subjective - Subjective Subjective: Reviewed this note written by student psychiatric nurse practitioner, Rosa Elena Lundberg, and approved it after discussion with her. Plan - Plan Treatment Plan: Name: MASON KIDD Birthdate: 1960 [id number] Medications: Current Medications Acetaminophen (Tylenol Tab*) 650 mg PO Q4H PRN PRN Reason: PAIN or TEMP > 101 F Last Admin: 01/24/17 21:14 Dose: 650 mg Al Hydrox/Mg Hydrox/Simethicone (Maalox Plus*) 30 ml PO Q4H PRN PRN Reason: INDIGESTION Bupropion HCl (Bupropion Xl*) 300 mg PO DAILY [facility] Last Admin: 01/27/17 09:51 Dose: Not Given Fluoxetine HCl (Prozac Cap*) 40 mg PO DAILY [facility] Last Admin: 01/27/17 09:51 Dose: Not Given [place] Carbonate ([place] Carbonate Er Tab*) 450 mg PO BID [facility] Last Admin: 01/27/17 09:51 Dose: Not Given Multivitamins (Theragran Tab*) 1 tab PO DAILY [facility] Last Admin: 01/27/17 09:51 Dose: 1 tab Olanzapine (Zyprexa Tab*) 5 mg PO BEDTIME [facility] Last Admin: 01/26/17 22:22 Dose: Not Given
[2017-01-27] MEDS: OLANzapine TAB* 5 MG PO SCH (20:18)
[2017-01-28] MEDS: Vitamin THERAPEUTIC TAB PO SCH (09:30)
[2017-01-28] MEDS: BuPROPion XL* 300 MG TAB.XL PO SCH (09:30)
[2017-01-28] MEDS: FLUoxetine CAP* 20 MG PO SCH (09:30)
[2017-01-28] MEDS: Lithium Carbonate ER* 450 MG TAB.ER PO SCH ×2 (09:31→21:12)
--- NOTE | 2017-01-28 15:45 | PN ---
Subjective - Subjective Subjective: Gwen endorses improving mood, denies suicidal ideation, has not been taking described meds, she denies the need for them. She denies with sleep, appetite, or level of energy. She comes out in the milieu for brief periods of time, she is not attending programming. Objective - Appearance Appearance: Healthy Appearing Dysmorphic Features: No Hygiene: Normal Grooming: Well Kept - Behavior Psychomotor Activities: Abnormal-Decreased - Attitude and Relatedness Attitude and Relatedness: Withdrawn Eye Contact: Poor - Speech Quality: Unpressured Latencies: Long Quantity: Terse - Mood Patient's Decription of Mood: "Okay" - Affect Observed Affect: Depressed Affect Consistent with: Dysphoria - Thought Process Patient's Thought Process: Impoverished Thought Content: Yes Paranoid Ideation, No Passive Wish, No Suicidal Planning, No Homicidal Ideation - Level of Consciousness Level of Consciousness: Alert Orientation: Yes Intact - Impulse Control Impulse Control: Intact - Insight and Judgement Insight and Judgement: Impaired - Group Participation Particating in Group Activities: No - Medication Management Medication Management Adherence: No Assessment - Assessment Merits Inpatient Hospitalization: For Ongoing Evaluation, Consolidate Improvements, For Discharge Planning Inpatient DSM-IV Dx: MDD, recurrent, severe with psychotic features Clinical Impression: Endorsing reduced distress level, improving mood despite non-compliance with prescribed meds. She needs continued admission for stabilization. Plan - Plan Treatment Plan: Name: GWEN KIDD Birthdate: 1960 [id number] Continue to offer meds. Continued Medication Management: Continue Outpt Medication Medications: Current Medications Acetaminophen (Tylenol Tab*) 650 mg PO Q4H PRN PRN Reason: PAIN or TEMP > 101 F Last Admin: 01/24/17 21:14 Dose: 650 mg Al Hydrox/Mg Hydrox/Simethicone (Maalox Plus*) 30 ml PO Q4H PRN PRN Reason: INDIGESTION Bupropion HCl (Bupropion Xl*) 300 mg PO DAILY [facility] Last Admin: 01/28/17 09:30 Dose: Not Given Fluoxetine HCl (Prozac Cap*) 40 mg PO DAILY [facility] Last Admin: 01/28/17 09:30 Dose: Not Given Norene Carbonate (Norene Carbonate Er Tab*) 450 mg PO BID [facility] Last Admin: 01/28/17 09:31 Dose: Not Given Multivitamins (Theragran Tab*) 1 tab PO DAILY [facility] Last Admin: 01/28/17 09:30 Dose: 1 tab Olanzapine (Zyprexa Tab*) 5 mg PO BEDTIME [facility] Last Admin: 01/27/17 20:18 Dose: Not Given - Discharge Plan Discharge Plan: Outpatient Follow Up Outpatient Program: [facility]
[2017-01-28] MEDS: OLANzapine TAB* 5 MG PO SCH (21:12)
[2017-01-29 08:24] VITALS: BP 110/62
[2017-01-29] MEDS: Vitamin THERAPEUTIC TAB PO SCH (08:25)
[2017-01-29] MEDS: BuPROPion XL* 300 MG TAB.XL PO SCH (08:26)
[2017-01-29] MEDS: FLUoxetine CAP* 20 MG PO SCH (08:26)
[2017-01-29] MEDS: Lithium Carbonate ER* 450 MG TAB.ER PO SCH (08:26)
--- NOTE | 2017-01-30 00:12 | DS ---
DISCHARGE SUMMARY: DATE OF ADMISSION: 01/23/17 DATE OF DISCHARGE: 01/29/17 DISCHARGE DIAGNOSES: Morovis I: Major depressive disorder, recurrent, severe with psychotic features. Morovis II: Deferred. Morovis III: None. Morovis IV: Moderate primary support and financial stressors. Morovis V: At the time of admission was 30 and at the time of discharge was 50. CONDITION AT THE TIME OF DISCHARGE: Guarded. The patient remains withdrawn, refusing to go to groups and refusing medications. Despite this, whenever her family has visited throughout her hospitalization she has been noted to perk up , become euthymic and be able to socialize and share with her family. I have spoken with the patient's , Wilson Prieto, who indicates at this time that he is in support of a discharge back home feeling that being around her family would be the most restorative option. I did explain my misgivings given the fact that she has been refusing medications and still tends to be withdrawn. Despite this, the family still insists that she would be better off in the home environment. I will say that from a legal perspective, she has been safe on all checks. She has steadfastly denied suicidal ideations and she has admitted that the inpatient hospital setting makes her extremely unhappy. The family denies that she ever made suicidal statements to the mobile crisis employee benefits attorney prior to coming to the hospital and they do not feel that the admission was warranted to begin with. The patient has shown no sign of self- harm. She has been eating, drinking, bathing, and toileting properly and shows no evidence that she would not be able care for herself in a less restrictive setting. At this time, she is refusing any medications at discharge. The best we can do is convince her to followup with her outpatient psychiatrist and therapist at [facility], which she is agreeable with doing. MENTAL STATUS EXAMINATION: The patient is an ageing white female with long brown hair. Her grooming is good. She makes good eye contact. Has good posture. Speech is somewhat slow, but she is articulate. Mood appears to be depressed with a constricted affect. Thought process is slow, but organized. Thought content is significant for her desire to go home and be with her family. 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 She denies suicidal or homicidal ideations and has done so throughout this hospitalization. She denies auditory or visual hallucinations and does not appear to be responding to internal stimuli. There has been no evidence over the past several days of psychotic thought process. Insight and judgement appear to be somewhat poor given her refusal of medications; however, she is showing good insight and stating that she will follow up at [facility]. Cognitively, she is awake and alert with what would appear to be an average intellect. DISCHARGE INSTRUCTIONS: A. Medications: None per the patient's preference. B. Diet: Regular. C. Activity: As tolerated. The patient is a non-smoker. There are no laboratory or diagnostic studies pending at the time of discharge. D. Followup care: The patient will follow up with the [facility] within 1 week of discharge. There she is already connected with psychiatrist, Eugenio Woods. HOSPITAL COURSE: Part A: Reason for admission: The patient is a 56-year-old white female with a history of depression and psychosis who arrived at our emergency department on a 9.45 status on the recommendation of her outpatient psychiatrist, Dr. Woods, due to disorganized behavior. According to the ER crisis evaluation, she had been observed in the community decompensating and unable to safely manage with outpatient services. Her thought process was disorganized and she was expressing some paranoid thoughts. An example of this is that she believed that her home had cameras in it and that she was being observed by listening devices. The patient was unable to participate in the emergency room evaluation despite the encouragement from her , Wilson. She at one point told the employee benefits attorney "you can leave, it's all been decided." She was tearful, had limited eye contact and was only marginally engaged in that process. On the morning of admission when I met her , she continued to be tearful and was not able to give much history. She indicated to me that she had had a recent medication change with a switch from aripiprazole to lurasidone and it was later clarified that this was secondary to extrapyramidal side effects. When she spoke, she was only interacting minimally and somewhat cryptically, telling me for example that she had done horrible things in her life and knew that she would be punished. She had pessimistic thoughts of stating that she would and that her family would not miss her if they found out about the terrible things that she has done. When I asked the patient for example, she could not specify anything in particular. This is now her fourth admission in which I have been her primary psychiatrist and I am aware of this history. Typically when she gets psychotic , she starts blaming herself for things that she did not necessarily do. She did tell me that she has been compliant with her medications, although her lithium level was mildly subtherapeutic at 0.57. Part B: Psychiatric treatment rendered: The patient was admitted to the adult behavioral health unit where she was placed on q.15-minute checks for her own safety. The patient continued to deny suicidal ideations and when I spoke with her , Wilson, he indicates that his family was present when the mobile crisis employee benefits attorney came and he denies their account that she had made any suicidal statements at that time. In fact, the family has not observed her saying anything regarding self-harm in several months. They were not necessarily supportive of this admission. As the hospitalization went on, the patient was nonadherent with her prescribed medications. When asked about this , she stated only "I want to do this on my own." I was able to gather from Dr. Woods's office that she had been placed on lurasidone recently because she had been experiencing extrapyramidal signs and symptoms from even a low dose of aripiprazole. It was suggested by Dr. Woods that we consider a trial of Zyprexa, because she had done well on this in the past. However, the patient refused this along with her antidepressant medications and lithium. Interestingly, the patient continued to deny suicidal ideations and she was safe on all checks throughout this hospitalization. She would come out for meals and was taking good care of herself in terms of bathing, cleaning herself , dressing, toileting, and eating. She was noticeably brighter when her family would visit, which was frequently and she fielded visits both from her and her 2 sons, as well as her ageing parents. On the date of discharge, I received a call from her , Wilson, who had spent much of the long holiday weekend visiting her. He noted that she would tend to improve in the presence of her family and he questioned the benefit of any further psychiatric hospitalization. He is aware that she has not been taking medications and he expressed an interest in seeing whether she would continue to do well not receiving psychopharmacology. Given her lack of self-harm and her intact ability to take care of activities of daily living, we find that under these circumstances that further psychiatric hospitalization on an involuntary basis would not be justified. For this reason, we are discharging her to follow up in the outpatient setting with Dr. Woods, which she agrees to do. The agrees to take responsibility for her safety and to get her to necessary outpatient mental health appointments. [id number]/[facility] #: [id number] LEAH
== END 2017-01-29 16:15 | disposition home or self-care (01) | DRG 885 ==
LOC: ED 15:34 → BSU 01-23 02:55
PROVIDERS: ADMIT Psychiatry & Neurology Psychiatry; ATTEND Psychiatry & Neurology Psychiatry
PROC: GZHZZZZ Group Psychotherapy (ICD-10-PCS; principal; 2017-01-25)
DX: F33.3 Major depressive disorder, recurrent, severe with psychotic symptoms (principal); R45.851 Suicidal ideations; F29 Unspecified psychosis not due to a substance or known physiological condition; I10 Essential (primary) hypertension; R51 Headache; R40.2362 Coma scale, best motor response, obeys commands, at arrival to emergency department; R40.2252 Coma scale, best verbal response, oriented, at arrival to emergency department; R40.2142 Coma scale, eyes open, spontaneous, at arrival to emergency department; Z88.8 Allergy status to other drugs, medicaments and biological substances; Z91.5 Personal history of self-harm; Z81.8 Family history of other mental and behavioral disorders; Z81.1 Family history of alcohol abuse and dependence; Z88.0 Allergy status to penicillin; Z91.14 Patient's other noncompliance with medication regimen
CPT/HCPCS: 36415; 80053; 80061; 80178; 80307; 80320; 80329; 81003; 83036; 84443; 84702; 85025; 90853; 99222; 99231; 99238; A9270-GY; G0480

== ENCOUNTER 2020-09-26 15:37 | Inpatient (IN) ==
[2020-09-26 17:19] LABS: ABS Lymphocytes 1.5 10^3/ul (1.0-4.8); ABS Monocytes 0.3 10^3/ul (0-0.8); ABS Neutrophils 4.5 10^3/ul (1.5-7.7); Eosinophil % 0.5 %; Hematocrit 42 % (35-47); Hemoglobin 13.7 g/dL (12.0-16.0); Mean Corpuscular HGB Conc 33 g/dL (31-36); Mean Corpuscular Hemoglobin 29 pg (27-31); Mean Corpuscular Volume 89 fL (80-97); Mean Platelet Volume 8.8 fL (7.4-10.4); Platelet Count 274 10^3/uL (150-450); Red Blood Count 4.68 10^6 /uL (3.70-4.87); Red Cell Distribution Width 14 % (10-15); White Blood Count 6.3 10^3/uL (3.5-10.8)
[2020-09-26 17:47] LABS: ALT 12 U/L (7-52); AST 17 U/L (13-39); Albumin 4.6 g/dL (3.2-5.2); Albumin/Globulin Ratio 1.6 (1-3); Alkaline Phosphatase 67 U/L (35-149); Anion Gap 9 mmol/L (2-11); Blood Urea Nitrogen 12 mg/dL (6-24); CO2 Carbon Dioxide 24 mmol/L (22-32); Calcium 9.5 mg/dL (8.6-10.3); Chloride 105 mmol/L (101-111); EGFR African American 101.6 (>60); Globulin 2.9 g/dL (2-4); Glucose 107 mg/dL (70-100); Potassium 4.1 mmol/L (3.5-5.0); Sodium 138 mmol/L (135-145); Total Protein 7.5 g/dL (6.4-8.9)
[2020-09-26 17:52] LABS: Acetaminophen < 15 mcg/mL; Alcohol, S < 10 mg/dL (<10); Salicylate < 2.50 mg/dL (<30)
[2020-09-26 18:06] LABS: TSH Ultra Thyroid Stim Horm 0.64 mcIU/mL (0.34-5.60)
[2020-09-26] MEDS ORDERED: Al Hydrox/Mg Hydrox/Simet LIQ 30 ML UDC PO PRN (21:32)
[2020-09-26] MEDS ORDERED: chlorproMAZINE TAB* 50 MG Q6H PRN AGITATION PO (22:00)
[2020-09-26 22:51] LABS: Urine Appearance Cloudy; Urine Bilirubin Negative (Negative); Urine Blood Negative (Negative); Urine Color Yellow; Urine Glucose Negative (Negative); Urine Ketones 1+ (Negative); Urine Nitrite Negative (Negative); Urine Protein Negative (Negative); Urine Specific Gravity 1.019 (1.002-1.030); Urine Urobilinogen Negative (Negative)
[2020-09-26 23:08] LABS: Urine Bacteria Absent (Absent); Urine Red Blood Cell Absent (Absent); Urine Squamous Epithelial Cell Present (Absent); Urine White Blood Cell 2+(11-20/hpf) (Absent)
[2020-09-26 23:13] LABS: Urine Benzodiazepine Screen None Detected (None Detect); Urine Cannabinoids Screen None Detected (None Detect); Urine Opiates Screen None Detected (None Detect)
[2020-09-27] MEDS: Vitamin THERAPEUTIC TAB PO SCH (09:59)
[2020-09-27] MEDS: CMC:OMEGA-3 FATTY ACID 1000 mg(NF) PO SCH (11:31)
[2020-09-28 08:21] LABS: HDL Cholesterol 53.2 mg/dL
[2020-09-28] MEDS: CMC:OMEGA-3 FATTY ACID 1000 mg(NF) PO SCH (09:15)
[2020-09-28] MEDS: Vitamin THERAPEUTIC TAB PO SCH (09:15)
[2020-09-29] MEDS: Vitamin THERAPEUTIC TAB PO SCH (10:09)
[2020-09-29] MEDS: CMC:OMEGA-3 FATTY ACID 1000 mg(NF) PO SCH (10:10)
[2020-09-30] MEDS: Vitamin THERAPEUTIC TAB PO SCH (07:54)
[2020-09-30] MEDS: CMC:OMEGA-3 FATTY ACID 1000 mg(NF) PO SCH (07:55)
[2020-09-30 10:04] VITALS: BP 135/73
== END 2020-09-30 11:10 | disposition home or self-care (01) | DRG 885 ==
LOC: ED 15:37 → BSU 20:23
PROVIDERS: ADMIT Psychiatry & Neurology Psychiatry; ATTEND Psychiatry & Neurology Psychiatry